=== PATIENT | female | born 1985 | race American Indian/Alaskan Native ===

== ENCOUNTER 2020-06-06 07:41 | Emergency (ER) | payer SELFPAY ==
--- NOTE | 2020-06-06 07:42 | EDM.PDOC ---
ED HPI GENERAL MEDICAL PROBLEM - General Stated Complaint: 8 WEEKS PREG-- EXTREME MORNING SICKNESS Time Seen by Provider: 06/06/20 07:41 Source of Information: Reports: Patient History Limitations: Reports: No Limitations - History of Present Illness INITIAL COMMENTS - FREE TEXT/NARRATIVE: 34-year-old female [place] 8 weeks presents with nausea and vomiting. Symptoms have worsened over the past 2 to 3 weeks and she has not been tolerating any p.o. intake over the past 2 days including water. She denies fever, pelvic pain, vaginal bleeding, leakage of fluid, myalgia, dysuria, urinary frequency. She admits to feeling weak with chills. She has a first OB appointment with Za Adams on Saturday. ROS: A 10-point review of systems, other than pertinent positives and negatives as stated per HPI, is otherwise negative Past medical history: No additional pertinent history Past Surgical history: No additional pertinent history Social history: No additional pertinent history Family history: No additional pertinent history PHYSICAL EXAM General: AOx4, GCS = 15, No distress HEENT: dry mucous membrane Neck: supple, no meningismus, no Kernig or Brudzinski Cardiac: S1S2 RRR Respiratory: CTAB, no crackles or rales, no wheezing Abdomen: Soft, nontender, no rebound or guarding, nondistended, no pulsatile mass. Back: nontender Musculoskeletal: NVI distally, no deformity Neuro: No focal deficits, CN 2 - 12 WNL. 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 DIRECTED Care 06/06/20 08:01 Active Dextrose 5%-0.45% NaCl [Dextrose 5%-1/2 NS] 1,000 ml Med 06/06/20 10:45 Active IV ASDIRECTED Medication Orders Dextrose/Sodium Chloride (Dextrose 5%-1/2 Ns) 1,000 mls @ 150 mls/hr IV ASDIRE CTED NAZANIN Last Infusion: 06/06/20 11:53 Dose: 999 mls/hr Documented by: [id number] Admin: 06/06/20 10:52 Dose: 150 mls/hr Documented by: [id number] Labs: Laboratory Tests 06/06/20 06/06/20 06/06/20 Range/Units 07:45 07:45 07:45 WBC 9.27 (4.0-11.0) K/uL RBC 4.57 (4.30-5.90) M/uL Hgb 13.1 (12.0-16.0) g/dL Hct 39.0 (36.0-46.0) % MCV 85.3 (80.0-98.0) fL MCH 28.7 (27.0-32.0) pg MCHC 33.6 (31.0-37.0) g/dL RDW Std Deviation 39.2 (28.0-62.0) fl RDW Coeff of Charlene 13 (11.0-15.0) % Plt Count 438 H (150-400) K/uL MPV 9.90 (7.40-12.00) fL Neut % (Auto) 79.6 (48.0-80.0) % Lymph % (Auto) 14.9 L (16.0-40.0) % Swisher % (Auto) 5.1 (0.0-15.0) % Eos % (Auto) 0.3 (0.0-7.0) % Baso % (Auto) 0.1 (0.0-1.5) % Neut # (Auto) 7.4 H (1.4-5.7) K/uL Lymph # (Auto) 1.4 (0.6-2.4) K/uL Swisher # (Auto) 0.5 (0.0-0.8) K/uL Eos # (Auto) 0.0 (0.0-0.7) K/uL Baso # (Auto) 0.0 (0.0-0.1) K/uL Nucleated RBC % 0.0 /100WBC Nucleated RBCs # 0 K/uL Lactate (0.20-2.00) mmol/L Sodium 135 L (136-145) mmol/L Potassium 3.7 (3.5-5.1) mmol/L Chloride 101 (98-107) mmol/L Carbon Dioxide 22.8 (21.0-32.0) mmol/L BUN 7 (7.0-18.0) mg/dL Creatinine 0.7 (0.6-1.0) mg/dL Est Cr Clr Drug Dosing 123.61 mL/min Estimated GFR (MDRD) > 60.0 ml/min Glucose 97 (74-106) mg/dL Calcium 8.9 (8.5-10.1) mg/dL Total Bilirubin 0.8 (0.2-1.0) mg/dL AST 19 (15-37) IU/L ALT 78 H (14-63) IU/L Alkaline Phosphatase 81 (46-116) U/L Total Protein 8.0 (6.4-8.2) g/dL Albumin 3.9 (3.4-5.0) g/dL Globulin 4.1 H (2.6-4.0) g/dL Albumin/Globulin Ratio 1.0 (0.9-1.6) HCG, Qual POSITIVE H (NEG) Urine Color Urine Appearance Urine pH (5.0-8.0) Ur Specific [place] (1.001-1.035) Urine Protein (NEGATIVE) mg/dL Urine Glucose (UA) (NEGATIVE) mg/dL Urine Ketones (NEGATIVE) mg/dL Urine Occult Blood (NEGATIVE) Urine Nitrite (NEGATIVE) Urine Bilirubin (NEGATIVE) Urine Urobilinogen (<2.0) EU/dL Ur Leukocyte Esterase (NEGATIVE) Urine RBC (0-2/HPF) Urine WBC (0-5/HPF) Ur Epithelial Cells (NONE-FEW) Urine Bacteria (NEGATIVE) Urine Mucus (NONE-MOD) 06/06/20 06/06/20 Range/Units 08:20 09:01 WBC (4.0-11.0) K/uL RBC (4.30-5.90) M/uL Hgb (12.0-16.0) g/dL Hct (36.0-46.0) % MCV (80.0-98.0) fL MCH (27.0-32.0) pg MCHC (31.0-37.0) g/dL RDW Std Deviation (28.0-62.0) fl RDW Coeff of Charlene (11.0-15.0) % Plt Count (150-400) K/uL MPV (7.40-12.00) fL Neut % (Auto) (48.0-80.0) % Lymph % (Auto) (16.0-40.0) % Swisher % (Auto) (0.0-15.0) % Eos % (Auto) (0.0-7.0) % Baso % (Auto) (0.0-1.5) % Neut # (Auto) (1.4-5.7) K/uL Lymph # (Auto) (0.6-2.4) K/uL Swisher # (Auto) (0.0-0.8) K/uL Eos # (Auto) (0.0-0.7) K/uL Baso # (Auto) (0.0-0.1) K/uL Nucleated RBC % /100WBC Nucleated RBCs # K/uL Lactate 0.6 (0.20-2.00) mmol/L Sodium (136-145) mmol/L Potassium (3.5-5.1) mmol/L Chloride (98-107) mmol/L Carbon Dioxide (21.0-32.0) mmol/L BUN (7.0-18.0) mg/dL Creatinine (0.6-1.0) mg/dL Est Cr Clr Drug Dosing mL/min Estimated GFR (MDRD) ml/min Glucose (74-106) mg/dL Calcium (8.5-10.1) mg/dL Total Bilirubin (0.2-1.0) mg/dL AST (15-37) IU/L ALT (14-63) IU/L Alkaline Phosphatase (46-116) U/L Total Protein (6.4-8.2) g/dL Albumin (3.4-5.0) g/dL Globulin (2.6-4.0) g/dL Albumin/Globulin Ratio (0.9-1.6) HCG, Qual (NEG) Urine Color ORANGE Urine Appearance CLEAR Urine pH 6.0 (5.0-8.0) Ur Specific [place] >= 1.030 (1.001-1.035) Urine Protein 100 H (NEGATIVE) mg/dL Urine Glucose (UA) NEGATIVE (NEGATIVE) mg/dL Urine Ketones >=80 (NEGATIVE) mg/dL Urine Occult Blood NEGATIVE (NEGATIVE) Urine Nitrite NEGATIVE (NEGATIVE) Urine Bilirubin MODERATE H (NEGATIVE) Urine Urobilinogen 1.0 (<2.0) EU/dL Ur Leukocyte Esterase NEGATIVE (NEGATIVE) Urine RBC 0-2 (0-2/HPF) Urine WBC 3-5 (0-5/HPF) Ur Epithelial Cells MODERATE (NONE-FEW) Urine Bacteria 1+ H (NEGATIVE) Urine Mucus HEAVY (NONE-MOD) Meds: Medications Generic Name Dose Route Start Last Admin Trade Name Freq PRN Reason Stop Dose Admin Dextrose/Sodium Chloride 1,000 mls @ 150 mls/hr 06/06/20 10:45 06/06/20 11:53 Dextrose 5%-1/2 Ns IV 999 mls/hr ASDIRECTED NAZANIN Infusion Discontinued Medications Generic Name Dose Route Start Last Admin Trade Name Freq PRN Reason Stop Dose Admin Diphenhydramine HCl 50 mg 06/06/20 10:20 06/06/20 10:28 Benadryl IVPUSH 06/06/20 10:21 50 mg ONETIME ONE Administration Lactated Ringer's 1,000 mls @ 999 mls/hr 06/06/20 08:01 06/06/20 08:13 Ringers, Lactated IV 06/06/20 09:01 999 mls/hr STAT STA Administration Lactated Ringer's 1,000 mls @ 999 mls/hr 06/06/20 09:05 06/06/20 09:33 Ringers, Lactated IV 06/06/20 10:05 999 mls/hr .BOLUS ONE Administration Metoclopramide HCl 10 mg 06/06/20 10:20 06/06/20 10:28 Reglan IVPUSH 06/06/20 10:21 10 mg ONETIME ONE Administration Ondansetron HCl 4 mg 06/06/20 08:01 06/06/20 08:13 Zofran IVPUSH 06/06/20 08:02 4 mg ONETIME ONE Administration - Re-Assessments/Exams Free Text/Narrative Re-Assessment/Exam: 06/06/20 13:00 After 2L LR and 1L D5 1/2 NS in the ER, she improved and is currently stable for discharge. I performed a repeat exam and did not appreciate new abnormal findings. Patient exhibits normal vital signs and has a normal gait on road test. I advised the patient to return to the ER for reevaluation if symptoms worsened, including fever, worsening pain, or any other worrisome symptoms. I instructed the patient to follow up with Za Paiz within 2-3 days. MEDICAL DECISION MAKING: I reviewed the patients past medical records, lab and radiographic findings. I discussed the case with the patient. My differential diagnosis included: Starvation ketosis, dehydration, hyperemesis gravidarum. Patient's urine demonstrated ketones, she was given D5 half-normal saline and 2 L of LR in the ER. She felt much improved and wanted to go home. Urine did not demonstrate UTI. Departure - Departure Time of Disposition: 12:41 Disposition: Home, Self-Care 01 Condition: Good Clinical Impression: Hyperemesis gravidarum - Discharge Information *PRESCRIPTION DRUG MONITORING PROGRAM REVIEWED*: Not Applicable *COPY OF PRESCRIPTION DRUG MONITORING REPORT IN PATIENT KASSI: Not Applicable Prescriptions: Ondansetron [Zofran ODT] 4 mg PO Q6H PRN #12 tab.dis PRN Reason: Vomiting Instructions: Hyperemesis Gravidarum Referrals: PCP,None [Primary Care Provider] - Forms: ED Department Discharge Additional Instructions: The need for follow-up, as well as the timing and circumstances, are variable depending upon the specifics of your emergency department visit. If you don't have a primary care physician on staff, we will provide you with a referral. We always advise you to contact your personal physician following an emergency department visit to inform them of the circumstance of the visit and for follow-up with them and/or the need for any referrals to a consulting specialist. The emergency department will also refer you to a specialist when appropriate. This referral assures that you have the opportunity for follow-up care with a specialist. All of these measure are taken in an effort to provide you with optimal care, which includes your follow-up. Under all circumstances we always encourage you to contact your private physician who remains a resource for coordinating your care. When calling for follow-up care, please make the office aware that this follow-up is from your recent emergency room visit. If for any reason you are refused follow-up, please contact the [facility] Emergency Department at and asked to speak to the emergency department charge nurse. If you do not have a primary care doctor, please follow up with the clinics below within 3-5 days. [facility] [address] [place] [id number] [facility] [address] [place] [id number] Sepsis Event Note (ED) - Focused Exam Vital Signs: Vital Signs Temp Pulse Resp BP Pulse Ox 06/06/20 10:32 59 L 17 126/66 99 06/06/20 09:35 61 140/72 99 06/06/20 07:52 97.3 F 64 17 147/94 H 98 - My Orders Last 24 Hours: My Active Orders 06/06/20 08:01 Cardiac Monitoring [RC] . DIRECTED 06/06/20 10:45 Dextrose 5%-0.45% NaCl [Dextrose 5%-1/2 NS] 1,000 ml IV ASDIRECTED - Assessment/Plan Last 24 Hours: My Active Orders 06/06/20 08:01 Cardiac Monitoring [RC] . DIRECTED 06/06/20 10:45 Dextrose 5%-0.45% NaCl [Dextrose 5%-1/2 NS] 1,000 ml IV ASDIRECTED
[2020-06-06] MEDS ORDERED: Ondansetron 4 MG/2 ML SDV IVPUSH ONE (08:01)
[2020-06-06] MEDS ORDERED: Lactated Ringers 1,000 ML IV STA (08:01)
[2020-06-06 08:25] LABS: BLOOD UREA NITROGEN,BUN 7 mg/dL (7.0-18.0); CARBON DIOXIDE,CO2 22.8 mmol/L (21.0-32.0); CHLORIDE,CL 101 mmol/L (98-107); GLUCOSE RANDOM 97 mg/dL (74-106); POTASSIUM,K 3.7 mmol/L (3.5-5.1); SODIUM,NA 135 mmol/L (136-145)
[2020-06-06] MEDS ORDERED: Lactated Ringers 1,000 ML IV ONE (09:05)
[2020-06-06] MEDS ORDERED: diphenhydrAMINE 50 MG/ML SDV IVPUSH ONE (10:20)
[2020-06-06] MEDS ORDERED: Metoclopramide 10 MG/2 ML SDV IVPUSH ONE (10:20)
[2020-06-06] MEDS ORDERED: Dextrose 5%-0.45% NaCl 1,000 ML IV SCH (10:45)
[2020-06-06 12:48] VITALS: BP 128/69; PULSE 65
== END 2020-06-06 12:48 | disposition home or self-care (01) ==
LOC: MW.ED 07:41
DX: O21.0 Mild hyperemesis gravidarum (principal); Z3A.08 8 weeks gestation of pregnancy
CPT/HCPCS: 36415; 80053; 81001; 83605; 84703; 85025; 96361; 96374; 96375; 99284; J1200; J2405; J2765; J7042; J7120; 99283

== ENCOUNTER 2020-06-11 07:30 | Emergency (ER) | payer SELFPAY ==
[2020-06-11] MEDS ORDERED: Sodium Chloride 0.9% 2.5 ML Syringe FLUSH PRN (07:49)
[2020-06-11] MEDS ORDERED: Sodium Chloride 0.9% 10 ML Syringe FLUSH PRN (07:49)
[2020-06-11] MEDS ORDERED: Metoclopramide 10 MG/2 ML SDV IVPUSH ONE (07:50)
[2020-06-11] MEDS ORDERED: Lactated Ringers 1,000 ML IV ONE ×2 (07:51→10:05)
--- NOTE | 2020-06-11 07:56 | EDM.PDOC ---
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 She not keeping anything down. She was here in the eighth and she responded well to Reglan was sent home with a prescription for Zofran for about 24 hours she felt better. An ultrasound on the and was told she is Review of systems: As per history of present illness and below otherwise all systems reviewed and negative. Past medical history: As per history of present illness and as reviewed below otherwise noncontributory. Surgical history: As per history of present illness and as reviewed below otherwise noncontributory. Social history: No reported history of drug or alcohol abuse. Family history: As per history of present illness and as reviewed below otherwise noncontributory. Physical exam: Constitutional - well developed, well-nourished and in no acute distress HEENT - normocephalic, no evidence of trauma - external nose and mouth normal - no mass in neck and no JVD - mucosae moist EYES - full EOM, PERRL, no icterus - no evidence of inflammation, injection, or drainage Respiratory - no respiratory distress, equal bilateral expansion, lungs clear to auscultation and no abnormal lung sounds Cardiovascular - Regular Rhythm with S1 and S2 appreciated and no murmur, gallop or rub. GI - abdomen soft without distension or organomegaly - normal bowel sounds - no guard or rebound Musculoskeletal no gross deformity of long bones or joints - no tenderness, swelling or edema Neurologic - Alert and oriented times four - CN II-XII grossly intact - motor sensory and coordination symmetrically normal Psychiatric - appropriate mood and affect with normal thought content Hematologic - No petechiae or purpura - mucosa appropriate color and sclera not pale - normal nail bed color and refill Integument - no rash or evidence of trauma - normal turgor Diagnostics: [] Therapeutics: [] Impression: [] Plan: [] Definitive disposition and diagnosis as appropriate pending reevaluation and review of above. 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 ED EXAM, GENERAL - Physical Exam Exam: See Below Free Text/Narrative:: My physical exam as in the HPI Course - Vital Signs Text/Narrative:: 8:30 AM and is resting comfortably. The plan at this time would be to have her respond to Reglan and hydrate her. If she does better she is willing to try to go home with Reglan prescription instead of Zofran. Was reviewed and nothing is terribly Adaline although CO2 slightly depressed from prior. 1038 the patient is doing well. She is taking p.o. Second liter has not gotten penitentiary and and she is only had a few sips so I will reevaluate before final decision to discharge. 11:15 AM patient is tolerating p.o. fluids. Has second liter of IV fluids. Wanting to try Reglan at home. Discharge planned. Last Recorded V/S: Last Vital Signs Temp 35.9 C L 06/11/20 07:36 Pulse 61 06/11/20 08:45 Resp 17 06/11/20 08:45 BP 110/71 06/11/20 08:45 Pulse Ox 97 06/11/20 08:45 - Orders/Labs/Meds Orders: Active Orders 24 hr Category Date Time Status Communication Order [RC] STAT Care 06/11/20 10:06 Active Sodium Chloride 0.9% [Saline Flush] Med 06/11/20 07:49 Active 10 ml FLUSH ASDIRECTED PRN Sodium Chloride 0.9% [Saline Flush] Med 06/11/20 07:49 Active 2.5 ml FLUSH ASDIRECTED PRN Saline Lock Insert [OM.PC] Stat Oth 06/11/20 07:50 Ordered Medication Orders Sodium Chloride (Sodium Chloride 0.9% 10 Ml Syringe) 10 ml FLUSH ASDIRECTED PRN PRN Reason: Keep Vein Open Last Admin: 06/11/20 08:14 Dose: 10 ml Documented by: AMANDA Sodium Chloride (Sodium Chloride 0.9% 2.5 Ml Syringe) 2.5 ml FLUSH ASDIRECTED PRN PRN Reason: Keep Vein Open Last Admin: 06/11/20 08:14 Dose: 2.5 ml Documented by: AMANDA Labs: Laboratory Tests 06/11/20 06/11/20 Range/Units 07:45 07:45 WBC 8.35 (4.0-11.0) K/uL RBC 4.58 (4.30-5.90) M/uL Hgb 13.3 (12.0-16.0) g/dL Hct 38.9 (36.0-46.0) % MCV 84.9 (80.0-98.0) fL MCH 29.0 (27.0-32.0) pg MCHC 34.2 (31.0-37.0) g/dL RDW Std Deviation 38.7 (28.0-62.0) fl RDW Coeff of Charlene 13 (11.0-15.0) % Plt Count 402 H (150-400) K/uL MPV 10.00 (7.40-12.00) fL Neut % (Auto) 81.3 H (48.0-80.0) % Lymph % (Auto) 14.5 L (16.0-40.0) % Bay % (Auto) 3.6 (0.0-15.0) % Eos % (Auto) 0.4 (0.0-7.0) % Baso % (Auto) 0.2 (0.0-1.5) % Neut # (Auto) 6.8 H (1.4-5.7) K/uL Lymph # (Auto) 1.2 (0.6-2.4) K/uL Bay # (Auto) 0.3 (0.0-0.8) K/uL Eos # (Auto) 0.0 (0.0-0.7) K/uL Baso # (Auto) 0.0 (0.0-0.1) K/uL Nucleated RBC % 0.0 /100WBC Nucleated RBCs # 0 K/uL Sodium 135 L (136-145) mmol/L Potassium 3.5 (3.5-5.1) mmol/L Chloride 100 (98-107) mmol/L Carbon Dioxide 19.3 L (21.0-32.0) mmol/L BUN 7 (7.0-18.0) mg/dL Creatinine 0.7 (0.6-1.0) mg/dL Est Cr Clr Drug Dosing TNP Estimated GFR (MDRD) > 60.0 ml/min Glucose 95 (74-106) mg/dL Calcium 8.9 (8.5-10.1) mg/dL Total Bilirubin 0.7 (0.2-1.0) mg/dL AST 29 (15-37) IU/L ALT 64 H (14-63) IU/L Alkaline Phosphatase 84 (46-116) U/L Total Protein 8.1 (6.4-8.2) g/dL Albumin 3.9 (3.4-5.0) g/dL Globulin 4.2 H (2.6-4.0) g/dL Albumin/Globulin Ratio 0.9 (0.9-1.6) Meds: Medications Generic Name Dose Route Start Last Admin Trade Name Freq PRN Reason Stop Dose Admin Sodium Chloride 10 ml 06/11/20 07:49 06/11/20 08:14 Sodium Chloride 0.9% 10 Ml Syringe FLUSH 10 ml ASDIRECTED PRN Administration Keep Vein Open Sodium Chloride 2.5 ml 06/11/20 07:49 06/11/20 08:14 Sodium Chloride 0.9% 2.5 Ml Syringe FLUSH 2.5 ml ASDIRECTED PRN Administration Keep Vein Open Discontinued Medications Generic Name Dose Route Start Last Admin Trade Name Freq PRN Reason Stop Dose Admin Lactated Ringer's 1,000 mls @ 1,000 mls/hr 06/11/20 07:51 06/11/20 08:11 Ringers, Lactated IV 06/11/20 08:50 1,000 mls/hr .BOLUS ONE Administration Lactated Ringer's 1,000 mls @ 1,000 mls/hr 06/11/20 10:05 06/11/20 10:13 Ringers, Lactated IV 06/11/20 11:04 1,000 mls/hr .BOLUS ONE Administration Metoclopramide HCl 10 mg 06/11/20 07:50 06/11/20 08:11 Metoclopramide 10 Mg/2 Ml Sdv IVPUSH 06/11/20 07:51 10 mg ONETIME ONE Administration Departure - Departure Time of Disposition: 11:15 Disposition: Home, Self-Care 01 Condition: Good Clinical Impression: Hyperemesis gravidarum - Discharge Information Prescriptions: Metoclopramide HCl [Reglan] 10 mg PO Q6H PRN #14 tablet PRN Reason: Nausea/Vomiting Instructions: Hyperemesis Gravidarum Referrals: Za Renee, JANNETH, ANIMAL KILLER [Primary Care Provider] - Forms: ED Department Discharge Additional Instructions: We will try Reglan this time. Drink plenty of fluids that contain electrolytes and try to get some protein. Follow-up with your doctor. Return if worse. [facility] [address] [place], [place] [id number] [facility] [address] [place] [address] The following information is given to patients seen in the emergency department who are being discharged to home. This information is to outline your options for follow-up care. We provide all patients seen in our emergency department with a follow-up referral. The need for follow-up, as well as the timing and circumstances, are variable depending upon the specifics of your emergency department visit. If you don't have a primary care physician on staff, we will provide you with a referral. We always advise you to contact your personal physician following an emergency department visit to inform them of the circumstance of the visit and for follow-up with them and/or the need for any referrals to a consulting specialist. The emergency department will also refer you to a specialist when appropriate. This referral assures that you have the opportunity for follow-up care with a specialist. All of these measure are taken in an effort to provide you with opt imal care, which includes your follow-up. Under all circumstances we always encourage you to contact your private physician who remains a resource for coordinating your care. When calling for follow-up care, please make the office aware that this follow-up is from your recent emergency room visit. If for any reason you are refused follow-up, please contact the Emergency Department at and asked to speak to the emergency department charge nurse. Sepsis Event Note (ED) - Evaluation Sepsis Screening Result: No Definite Risk - Focused Exam Vital Signs: Vital Signs Temp Pulse Resp BP Pulse Ox 06/11/20 08:45 61 17 110/71 97 06/11/20 07:36 35.9 C L 73 18 139/84 96 - My Orders Last 24 Hours: My Active Orders 06/11/20 07:49 Sodium Chloride 0.9% [Saline Flush] 10 ml FLUSH ASDIRECTED PRN Sodium Chloride 0.9% [Saline Flush] 2.5 ml FLUSH ASDIRECTED PRN 06/11/20 07:50 Saline Lock Insert [OM.PC] Stat 06/11/20 10:06 Communication Order [RC] STAT - Assessment/Plan Last 24 Hours: My Active Orders 06/11/20 07:49 Sodium Chloride 0.9% [Saline Flush] 10 ml FLUSH ASDIRECTED PRN Sodium Chloride 0.9% [Saline Flush] 2.5 ml FLUSH ASDIRECTED PRN 06/11/20 07:50 Saline Lock Insert [OM.PC] Stat 06/11/20 10:06 Communication Order [RC] STAT
[2020-06-11 08:08] LABS: BLOOD UREA NITROGEN,BUN 7 mg/dL (7.0-18.0); CARBON DIOXIDE,CO2 19.3 mmol/L (21.0-32.0); CHLORIDE,CL 100 mmol/L (98-107); GLUCOSE RANDOM 95 mg/dL (74-106); POTASSIUM,K 3.5 mmol/L (3.5-5.1); SODIUM,NA 135 mmol/L (136-145)
[2020-06-11 13:36] VITALS: BP 128/71; PULSE 60
== END 2020-06-11 11:35 | disposition home or self-care (01) ==
LOC: MW.ED 07:30
DX: O21.0 Mild hyperemesis gravidarum (principal)
CPT/HCPCS: 36415; 80053; 85025; 96374; 99284; J2765; J7120; 99283

== ENCOUNTER 2020-06-15 07:57 | Emergency (ER) | payer SELFPAY ==
[2020-06-15] MEDS ORDERED: Sodium Chloride 0.9% 1,000 ML IV ONE (08:21)
[2020-06-15] MEDS ORDERED: Metoclopramide 10 MG/2 ML SDV IVPUSH ONE (08:22)
[2020-06-15] MEDS ORDERED: diphenhydrAMINE 50 MG/ML SDV IVPUSH ONE (08:23)
--- NOTE | 2020-06-15 08:27 | EDM.PDOC ---
ED HPI GENERAL MEDICAL PROBLEM - General Chief Complaint: Gastrointestinal Problem Stated Complaint: VOMITING Time Seen by Provider: 06/15/20 08:23 Source of Information: Reports: Patient History Limitations: Reports: No Limitations - History of Present Illness INITIAL COMMENTS - FREE TEXT/NARRATIVE: Patient is a 35-year-old female who is 10 weeks G3, P2 presents today for vomiting. Patient dates in the past week she seen 3 providers for the vomiting. She initially was started on vitamin B6 and Unasyn which she says she cannot keep down acute vomiting. Patient was then given Reglan in the ED which seemed to help her vomiting but she went home with a prescription has not been to keep the medicine down as well. Patient also tried Zofran p.o. has not helped. Patient denies any abdominal pain vaginal bleeding or discharge. Patient dates that whenever she eats or drinks something she just vomits. Patient states she has felt tired weak but no she is not eating well concerned about not taking any food or liquids then. Patient has no other complaints. 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: Psychiatric History: Reports: Anxiety - Infectious Disease History Infectious Disease History: Reports: None - Past Surgical History GI Surgical History: Reports: Cholecystectomy Social & Family History - Family History Family Medical History: No Pertinent Family History - Tobacco Use Tobacco Use Status *Q: Never Tobacco User - Caffeine Use Caffeine Use: Reports: None - Recreational Drug Use Recreational Drug Use: No ED ROS GENERAL - Review of Systems Review Of Systems: See Below Constitutional: Reports: No Symptoms HEENT: Reports: No Symptoms Respiratory: Reports: No Symptoms Cardiovascular: Reports: No Symptoms Endocrine: Reports: No Symptoms GI/Abdominal: Reports: Vomiting : Reports: No Symptoms Musculoskeletal: Reports: No Symptoms Skin: Reports: No Symptoms Neurological: Reports: No Symptoms Psychiatric: Reports: No Symptoms Hematologic/Lymphatic: Reports: No Symptoms Immunologic: Reports: No Symptoms ED EXAM - Physical Exam Exam: See Below Exam Limited By: No Limitations General Appearance: Alert, WD/WN, No Apparent Distress Eye Exam: Bilateral Eye: EOMI, PERRL Respiratory/Chest: No Respiratory Distress, Lungs Clear Cardiovascular: Normal Peripheral Pulses, Regular Rate, Rhythm GI/Abdominal Exam: Normal Bowel Sounds, Soft, Non-Tender Extremities: Normal Inspection Neurological: Alert, Oriented, Normal Cognition, Normal Gait Course - Vital Signs Last Recorded V/S: Last Vital Signs Temp 96.7 F L 06/15/20 08:16 Pulse 64 06/15/20 08:16 Resp 16 06/15/20 08:16 BP 129/77 06/15/20 08:16 Pulse Ox 98 06/15/20 08:16 - Orders/Labs/Meds Orders: Active Orders 24 hr Category Date Time Status Dextrose 5%-0.9% NaCl [Dextrose 5%-Normal Saline] 1,000 Med 06/15/20 09:45 Active ml IV ASDIRECTED Medication Orders Dextrose/Sodium Chloride (Dextrose 5%-Normal Saline) 1,000 mls @ 999 mls/hr IV ASDIRECTED NAZANIN Last Admin: 06/15/20 09:44 Dose: 999 mls/hr Documented by: TAMMI Labs: Laboratory Tests 06/15/20 06/15/20 06/15/20 Range/Units 08:35 08:53 08:53 WBC 7.97 (4.0-11.0) K/uL RBC 4.78 (4.30-5.90) M/uL Hgb 14.0 (12.0-16.0) g/dL Hct 40.4 (36.0-46.0) % MCV 84.5 (80.0-98.0) fL MCH 29.3 (27.0-32.0) pg MCHC 34.7 (31.0-37.0) g/dL RDW Std Deviation 38.5 (28.0-62.0) fl RDW Coeff of Charlene 13 (11.0-15.0) % Plt Count 371 (150-400) K/uL MPV 10.40 (7.40-12.00) fL Neut % (Auto) 76.6 (48.0-80.0) % Lymph % (Auto) 17.1 (16.0-40.0) % Owen % (Auto) 5.9 (0.0-15.0) % Eos % (Auto) 0.3 (0.0-7.0) % Baso % (Auto) 0.1 (0.0-1.5) % Neut # (Auto) 6.1 H (1.4-5.7) K/uL Lymph # (Auto) 1.4 (0.6-2.4) K/uL Owen # (Auto) 0.5 (0.0-0.8) K/uL Eos # (Auto) 0.0 (0.0-0.7) K/uL Baso # (Auto) 0.0 (0.0-0.1) K/uL Nucleated RBC % 0.0 /100WBC Nucleated RBCs # 0 K/uL Sodium 136 (136-145) mmol/L Potassium 3.4 L (3.5-5.1) mmol/L Chloride 101 (98-107) mmol/L Carbon Dioxide 17.4 L (21.0-32.0) mmol/L BUN 8 (7.0-18.0) mg/dL Creatinine 0.7 (0.6-1.0) mg/dL Est Cr Clr Drug Dosing 106.01 mL/min Estimated GFR (MDRD) > 60.0 ml/min Glucose 84 (74-106) mg/dL Calcium 9.0 (8.5-10.1) mg/dL Phosphorus 3.6 (2.6-4.7) mg/dL Magnesium 1.9 (1.8-2.4) mg/dL Total Bilirubin 0.7 (0.2-1.0) mg/dL AST 40 H (15-37) IU/L ALT 109 H (14-63) IU/L Alkaline Phosphatase 96 (46-116) U/L Total Protein 8.1 (6.4-8.2) g/dL Albumin 3.8 (3.4-5.0) g/dL Globulin 4.3 H (2.6-4.0) g/dL Albumin/Globulin Ratio 0.9 (0.9-1.6) Lipase 93 (73-393) U/L HCG, Quant 47912.0 mIU/mL Urine Color YELLOW Urine Appearance SLT CLOUDY Urine pH 6.0 (5.0-8.0) Ur Specific [place] >= 1.030 (1.001-1.035) Urine Protein 30 H (NEGATIVE) mg/dL Urine Glucose (UA) NEGATIVE (NEGATIVE) mg/dL Urine Ketones >=80 (NEGATIVE) mg/dL Urine Occult Blood TRACE-INTACT H (NEGATIVE) Urine Nitrite NEGATIVE (NEGATIVE) Urine Bilirubin SMALL H (NEGATIVE) Urine Ictotest NEGATIVE Urine Urobilinogen 0.2 (<2.0) EU/dL Ur Leukocyte Esterase TRACE H (NEGATIVE) Urine RBC 0-2 (0-2/HPF) Urine WBC 0-3 (0-5/HPF) Ur Epithelial Cells MODERATE (NONE-FEW) Urine Bacteria 2+ H (NEGATIVE) Blood Type 06/15/20 Range/Units 08:53 WBC (4.0-11.0) K/uL RBC (4.30-5.90) M/uL Hgb (12.0-16.0) g/dL Hct (36.0-46.0) % MCV (80.0-98.0) fL MCH (27.0-32.0) pg MCHC (31.0-37.0) g/dL RDW Std Deviation (28.0-62.0) fl RDW Coeff of Charlene (11.0-15.0) % Plt Count (150-400) K/uL MPV (7.40-12.00) fL Neut % (Auto) (48.0-80.0) % Lymph % (Auto) (16.0-40.0) % Owen % (Auto) (0.0-15.0) % Eos % (Auto) (0.0-7.0) % Baso % (Auto) (0.0-1.5) % Neut # (Auto) (1.4-5.7) K/uL Lymph # (Auto) (0.6-2.4) K/uL Owen # (Auto) (0.0-0.8) K/uL Eos # (Auto) (0.0-0.7) K/uL Baso # (Auto) (0.0-0.1) K/uL Nucleated RBC % /100WBC Nucleated RBCs # K/uL Sodium (136-145) mmol/L Potassium (3.5-5.1) mmol/L Chloride (98-107) mmol/L Carbon Dioxide (21.0-32.0) mmol/L BUN (7.0-18.0) mg/dL Creatinine (0.6-1.0) mg/dL Est Cr Clr Drug Dosing mL/min Estimated GFR (MDRD) ml/min Glucose (74-106) mg/dL Calcium (8.5-10.1) mg/dL Phosphorus (2.6-4.7) mg/dL Magnesium (1.8-2.4) mg/dL Total Bilirubin (0.2-1.0) mg/dL AST (15-37) IU/L ALT (14-63) IU/L Alkaline Phosphatase (46-116) U/L Total Protein (6.4-8.2) g/dL Albumin (3.4-5.0) g/dL Globulin (2.6-4.0) g/dL Albumin/Globulin Ratio (0.9-1.6) Lipase (73-393) U/L HCG, Quant mIU/mL Urine Color Urine Appearance Urine pH (5.0-8.0) Ur Specific [place] (1.001-1.035) Urine Protein (NEGATIVE) mg/dL Urine Glucose (UA) (NEGATIVE) mg/dL Urine Ketones (NEGATIVE) mg/dL Urine Occult Blood (NEGATIVE) Urine Nitrite (NEGATIVE) Urine Bilirubin (NEGATIVE) Urine Ictotest Urine Urobilinogen (<2.0) EU/dL Ur Leukocyte Esterase (NEGATIVE) Urine RBC (0-2/HPF) Urine WBC (0-5/HPF) Ur Epithelial Cells (NONE-FEW) Urine Bacteria (NEGATIVE) Blood Type A POSITIVE Meds: Medications Generic Name Dose Route Start Last Admin Trade Name Freq PRN Reason Stop Dose Admin Dextrose/Sodium Chloride 1,000 mls @ 999 mls/hr 06/15/20 09:45 06/15/20 09:44 Dextrose 5%-Normal Saline IV 999 mls/hr ASDIRECTED NAZANIN Administration Discontinued Medications Generic Name Dose Route Start Last Admin Trade Name Freq PRN Reason Stop Dose Admin Diphenhydramine HCl 12.5 mg 06/15/20 08:23 06/15/20 08:47 Diphenhydramine 50 Mg/Ml Sdv IVPUSH 06/15/20 08:24 12.5 mg ONETIME ONE Administration Sodium Chloride 1,000 mls @ 999 mls/hr 06/15/20 08:21 06/15/20 08:47 Normal Saline IV 06/15/20 09:21 999 mls/hr .BOLUS ONE Administration Dextrose/Sodium Chloride 500 mls @ 999 mls/hr 06/15/20 09:19 06/15/20 09:41 Dextrose 5%-Normal Saline IV 06/15/20 09:49 Not Given STAT STA Metoclopramide HCl 10 mg 06/15/20 08:22 06/15/20 08:47 Metoclopramide 10 Mg/2 Ml Sdv IVPUSH 06/15/20 08:23 10 mg ONETIME ONE Administration - Re-Assessments/Exams Free Text/Narrative Re-Assessment/Exam: 06/15/20 10:15 Patient is tolerating p.o. and feels better. Patient was informed that the bacteria in her urine and will be sent home on Macrobid. Patient already has antiemetics at home and will continue to take those. Departure - Departure Time of Disposition: 10:16 Disposition: Home, Self-Care 01 Condition: Good Clinical Impression: Hyperemesis gravidarum - Discharge Information *PRESCRIPTION DRUG MONITORING PROGRAM REVIEWED*: Not Applicable *COPY OF PRESCRIPTION DRUG MONITORING REPORT IN PATIENT KASSI: Not Applicable Instructions: Hyperemesis Gravidarum Referrals: Za Renee CNM, OPERATOR VACUUM [Primary Care Provider] - Forms: ED Department Discharge Additional Instructions: The following information is given to patients seen in the emergency department who are being discharged to home. This information is to outline your options for follow-up care. We provide all patients seen in our emergency department with a follow-up referral. The need for follow-up, as well as the timing and circumstances, are variable depending upon the specifics of your emergency department visit. If you don't have a primary care physician on staff, we will provide you with a referral. We always advise you to contact your personal physician following an emergency department visit to inform them of the circumstance of the visit and for follow-up with them and/or the need for any referrals to a consulting specialist. The emergency department will also refer you to a specialist when appropriate. This referral assures that you have the opportunity for follow-up care with a specialist. All of these measure are taken in an effort to provide you with optimal care, which includes your follow-up. Under all circumstances we always encourage you to contact your private alina alvaradoian who remains a resource for coordinating your care. When calling for follow-up care, please make the office aware that this follow-up is from your recent emergency room visit. If for any reason you are refused follow-up, please contact the [facility] Emergency Department at and asked to speak to the emergency department charge nurse. Please follow up with your primary care physician. If you do not have a primary care physician, see below: [facility] [address] [place] [phone] [facility] [address] [place] [phone] Please continue to follow-up with MECHANICAL ADJUSTER doctor if you have any nausea vomiting and cannot tolerate p.o. or vaginal bleeding please return to the ED. Sepsis Event Note (ED) - Evaluation Sepsis Screening Result: No Definite Risk - Focused Exam Vital Signs: Vital Signs Temp Pulse Resp BP Pulse Ox 06/15/20 08:16 96.7 F L 64 16 129/77 98 - My Orders Last 24 Hours: My Active Orders 06/15/20 09:45 Dextrose 5%-0.9% NaCl [Dextrose 5%-Normal Saline] 1,000 ml IV ASDIRECTED - Assessment/Plan Last 24 Hours: My Active Orders 06/15/20 09:45 Dextrose 5%-0.9% NaCl [Dextrose 5%-Normal Saline] 1,000 ml IV ASDIRECTED Plan: Patient is a 35-year-old female who presents today for nausea and vomiting. Patient is 10 weeks has no vaginal discharge or bleeding. Will provide IV fluids antiemetics and will reassess patient.
[2020-06-15] MEDS ORDERED: Dextrose 5%-0.9% NaCl 1,000 ML IV SCH ×2 (09:15→09:45)
[2020-06-15] MEDS ORDERED: Dextrose 5%-0.9% NaCl 500 ML IV STA (09:19)
[2020-06-15 09:58] LABS: BLOOD UREA NITROGEN,BUN 8 mg/dL (7.0-18.0); CARBON DIOXIDE,CO2 17.4 mmol/L (21.0-32.0); CHLORIDE,CL 101 mmol/L (98-107); GLUCOSE RANDOM 84 mg/dL (74-106); LIPASE 93 U/L (73-393); POTASSIUM,K 3.4 mmol/L (3.5-5.1); SODIUM,NA 136 mmol/L (136-145)
[2020-06-15 10:44] VITALS: BP 119/75; PULSE 65
== END 2020-06-15 10:44 | disposition home or self-care (01) ==
LOC: MW.ED 07:57
DX: O21.0 Mild hyperemesis gravidarum (principal); Z3A.10 10 weeks gestation of pregnancy
CPT/HCPCS: 36415; 80053; 81001; 83690; 83735; 84100; 84702; 85025; 86900; 86901; 96374; 96375; 99284; J1200; J2765; J7030; J7042; 99283

== ENCOUNTER 2020-06-23 15:06 | Emergency (ER) | payer MEDICAID ==
[2020-06-23] MEDS ORDERED: Sodium Chloride 0.9% 1,000 ML IV ONE (15:32)
--- NOTE | 2020-06-23 15:37 | EDM.PDOC ---
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 Patient been seen multiple times in ER for similar symptoms. 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 And states that she woke this morning with vomiting and could not control it at home. Patient states she is able to tolerate liquids at times has not had anything solid in the past few days. Patient also noticed that when she went to the bathroom and wiped there was some blood on the tissue. Patient denies any abdominal cramps states she does not need a pad right now. Patient denies seeing any clots or tissue. 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: Psychiatric History: Reports: Anxiety - Infectious Disease History Infectious Disease History: Reports: None - Past Surgical History GI Surgical History: Reports: Cholecystectomy Social & Family History - Family History Family Medical History: No Pertinent Family History - Caffeine Use Caffeine Use: Reports: None ED ROS GENERAL - Review of Systems Review Of Systems: See Below Constitutional: Reports: No Symptoms HEENT: Reports: No Symptoms Respiratory: Reports: No Symptoms Cardiovascular: Reports: No Symptoms Endocrine: Reports: No Symptoms GI/Abdominal: Reports: Nausea, Vomiting : Reports: No Symptoms Musculoskeletal: Reports: No Symptoms Skin: Reports: No Symptoms Neurological: Reports: No Symptoms Psychiatric: Reports: No Symptoms Hematologic/Lymphatic: Reports: No Symptoms Immunologic: Reports: No Symptoms ED EXAM, GI/ABD - Physical Exam Exam: See Below Exam Limited By: No Limitations General Appearance: Alert, WD/WN, No Apparent Distress Respiratory/Chest: No Respiratory Distress Cardiovascular: Normal Peripheral Pulses, Regular Rate, Rhythm GI/Abdominal Exam: Normal Bowel Sounds, Soft, Non-Tender (Female) Exam: Normal External Exam, Normal Speculum Exam. No: Adnexal Tenderness, Cervical Dilatation, Cervix Motion Tenderness Extremities: Normal Inspection, Normal Range of Motion Neurological: Alert, Oriented, Normal Cognition, Normal Gait Departure - Departure Time of Disposition: 18:59 Disposition: Home, Self-Care 01 Condition: Good Clinical Impression: Hemorrhage, , early - Discharge Information *PRESCRIPTION DRUG MONITORING PROGRAM REVIEWED*: Not Applicable *COPY OF PRESCRIPTION DRUG MONITORING REPORT IN PATIENT KASSI: Not Applicable Instructions: Vaginal Bleeding During , First Trimester Referrals: PCP,None [Primary Care Provider] - Forms: ED Department Discharge Additional Instructions: The following information is given to patients seen in the emergency department who are being discharged to home. This information is to outline your options for follow-up care. We provide all patients seen in our emergency department with a follow-up referral. The need for follow-up, as well as the timing and circumstances, are variable depending upon the specifics of your emergency department visit. If you don't have a primary care physician on staff, we will provide you with a referral. We always advise you to contact your personal physician following an emergency department visit to inform them of the circumstance of the visit and for follow-up with them and/or the need for any referrals to a consulting specialist. The emergency department will also refer you to a specialist when appropriate. This referral assures that you have the opportunity for follow-up care with a specialist. All of these measure are taken in an effort to provide you with optimal care, which includes your follow-up. Under all circumstances we always encourage you to contact your private physician who remains a resource for coordinating your care. When calling for follow-up care, please make the office aware that this follow-up is from your recent emergency room visit. If for any reason you are refused follow-up, please contact the [facility] Emergency Department at and asked to speak to the emergency department charge nurse. Please follow up with your primary care physician. If you do not have a primary care physician, see below: [facility] [address] [place] [id number] [facility] [address] [place] [phone] Please call your CREDIT REVIEW ANALYST physician tomorrow for follow-up. Continue to take your antinausea medication as prescribed. If you have any other concerning signs or symptoms please return to the ED immediately. Sepsis Event Note (ED) - Evaluation Sepsis Screening Result: No Definite Risk - Assessment/Plan Plan: Is a 35-year-old female who presents today for nausea vomiting. Patient also 11 weeks . Patient reports some blood in her urine. Will obtain labs to pelvic exam and possible ultrasound. <Alfonso Romero E - Last Filed: 06/23/20 19:17> ED HPI GENERAL MEDICAL PROBLEM - History of Present Illness INITIAL COMMENTS - FREE TEXT/NARRATIVE: Patient's ultrasound shows a single viable intrauterine . No abnormalities seen. No evidence for placenta previa or abruption. Gestational age calculated at 12 weeks 0 days. The ovaries were not identified on this exam. I have talked with the patient about today's findings, in addition to providing specific details for plan of care. Reassessment at the time of disposition demonstrates that the patient is in no acute distress. The patient is stable for discharge, counseling was provided and we discussed in great detail signs and symptoms that would prompt them to return to the Emergency Department. Medication, follow up and supportive care measures were reviewed and discussed. Voices understanding and is agreeable to plan of care. Denies any further questions or concerns at this time. Course - Vital Signs Last Recorded V/S: Last Vital Signs Temp 96.8 F L 06/23/20 15:15 Pulse 88 06/23/20 18:35 Resp 17 06/23/20 18:35 BP 121/86 06/23/20 18:35 Pulse Ox 99 06/23/20 18:35 - Orders/Labs/Meds Labs: Laboratory Tests 06/23/20 06/23/20 06/23/20 Range/Units 15:34 15:38 15:38 WBC 11.70 H (4.0-11.0) K/uL RBC 5.06 (4.30-5.90) M/uL Hgb 14.9 (12.0-16.0) g/dL Hct 41.9 (36.0-46.0) % MCV 82.8 (80.0-98.0) fL MCH 29.4 (27.0-32.0) pg MCHC 35.6 (31.0-37.0) g/dL RDW Std Deviation 38.7 (28.0-62.0) fl RDW Coeff of Charlene 13 (11.0-15.0) % Plt Count 352 (150-400) K/uL MPV 11.10 (7.40-12.00) fL Neut % (Auto) 80.5 H (48.0-80.0) % Lymph % (Auto) 11.9 L (16.0-40.0) % [place] % (Auto) 7.2 (0.0-15.0) % Eos % (Auto) 0.3 (0.0-7.0) % Baso % (Auto) 0.1 (0.0-1.5) % Neut # (Auto) 9.4 H (1.4-5.7) K/uL Lymph # (Auto) 1.4 (0.6-2.4) K/uL [place] # (Auto) 0.8 (0.0-0.8) K/uL Eos # (Auto) 0.0 (0.0-0.7) K/uL Baso # (Auto) 0.0 (0.0-0.1) K/uL Nucleated RBC % 0.0 /100WBC Nucleated RBCs # 0 K/uL Sodium 133 L (136-145) mmol/L Potassium 3.5 (3.5-5.1) mmol/L Chloride 99 (98-107) mmol/L Carbon Dioxide 12.1 L (21.0-32.0) mmol/L BUN 9 (7.0-18.0) mg/dL Creatinine 0.8 (0.6-1.0) mg/dL Est Cr Clr Drug Dosing 107.15 mL/min Estimated GFR (MDRD) > 60.0 ml/min Glucose 108 H (74-106) mg/dL Calcium 9.1 (8.5-10.1) mg/dL Phosphorus 3.7 (2.6-4.7) mg/dL Magnesium 1.7 L (1.8-2.4) mg/dL Total Bilirubin 0.9 (0.2-1.0) mg/dL AST 54 H (15-37) IU/L ALT 141 H (14-63) IU/L Alkaline Phosphatase 110 (46-116) U/L Total Protein 7.9 (6.4-8.2) g/dL Albumin 3.5 (3.4-5.0) g/dL Globulin 4.4 H (2.6-4.0) g/dL Albumin/Globulin Ratio 0.8 L (0.9-1.6) Lipase 127 (73-393) U/L Urine Color YELLOW Urine Appearance SLT CLOUDY Urine pH 6.0 (5.0-8.0) Ur Specific [place] >= 1.030 (1.001-1.035) Urine Protein 100 H (NEGATIVE) mg/dL Urine Glucose (UA) NEGATIVE (NEGATIVE) mg/dL Urine Ketones >=80 (NEGATIVE) mg/dL Urine Occult Blood LARGE H (NEGATIVE) Urine Nitrite POSITIVE H (NEGATIVE) Urine Bilirubin MODERATE H (NEGATIVE) Urine Urobilinogen 1.0 (<2.0) EU/dL Ur Leukocyte Esterase TRACE H (NEGATIVE) U Hyaline Cast (Auto) 2-4 (0-2/LPF) Urine RBC 3-6 (0-2/HPF) Urine WBC 1-5 (0-5/HPF) Ur Epithelial Cells MODERATE (NONE-FEW) Amorphous Sediment LIGHT (NEGATIVE) Urine Bacteria 3+ H (NEGATIVE) Coarse Granular Casts 0-1 (NEGATIVE) Urine Mucus LIGHT (NONE-MOD) Meds: Medications Discontinued Medications Generic Name Dose Route Start Last Admin Trade Name Freq PRN Reason Stop Dose Admin Al Hydroxide/Mg Hydroxide 15 0 ml 06/23/20 18:12 06/23/20 18:31 ml/ Lidocaine HCl 5 ml PO 06/23/20 18:13 1 each ONETIME ONE Administration Diphenhydramine HCl 12.5 mg 06/23/20 16:20 06/23/20 16:41 Diphenhydramine 50 Mg/Ml Sdv IVPUSH 06/23/20 16:21 12.5 mg ONETIME ONE Administration Sodium Chloride 1,000 mls @ 999 mls/hr 06/23/20 15:32 06/23/20 15:41 Normal Saline IV 06/23/20 16:32 999 mls/hr .BOLUS ONE Administration Ceftriaxone Sodium/Dextrose Confirm 06/23/20 16:33 06/23/20 16:47 Rocephin In Dextrose,Iso-Osm 1 Gm/50 Ml Administered 06/23/20 16:34 Not Given Dose 50 mls @ as directed .ROUTE .STK-MED ONE Ceftriaxone Sodium/Dextrose 1 50 mls @ 100 mls/hr 06/23/20 16:41 06/23/20 16:46 gm/ Premix IV 06/23/20 17:10 100 mls/hr ONETIME ONE Administration Metoclopramide HCl 10 mg 06/23/20 16:20 06/23/20 16:39 Metoclopramide 10 Mg/2 Ml Sdv IVPUSH 06/23/20 16:21 10 mg ONETIME ONE Administration Departure - Departure Time of Disposition: 19:17 Sepsis Event Note (ED) - Focused Exam Vital Signs: Vital Signs Temp Pulse Resp BP Pulse Ox 06/23/20 18:35 88 17 121/86 99 06/23/20 16:00 99 17 106/56 L 97 06/23/20 15:15 96.8 F L 100 18 155/94 H 97
[2020-06-23 16:08] LABS: BLOOD UREA NITROGEN,BUN 9 mg/dL (7.0-18.0); CARBON DIOXIDE,CO2 12.1 mmol/L (21.0-32.0); CHLORIDE,CL 99 mmol/L (98-107); GLUCOSE RANDOM 108 mg/dL (74-106); LIPASE 127 U/L (73-393); POTASSIUM,K 3.5 mmol/L (3.5-5.1); SODIUM,NA 133 mmol/L (136-145)
[2020-06-23] MEDS ORDERED: cefTRIAXone 1 GM Vial IVPUSH ONE (16:08)
[2020-06-23] MEDS ORDERED: diphenhydrAMINE 50 MG/ML SDV IVPUSH ONE (16:20)
[2020-06-23] MEDS ORDERED: Metoclopramide 10 MG/2 ML SDV IVPUSH ONE (16:20)
[2020-06-23] MEDS ORDERED: cefTRIAXone 1 GM in Premix Bag 1 BAG IV ONE (16:41)
[2020-06-23] MEDS ORDERED: Alum Hydrox/Mag Hydrox/Simeth 15 ML, Lidocaine 2% 5 ML PO ONE ×2 (18:12)
[2020-06-23 18:36] VITALS: BP 121/86; PULSE 88
--- NOTE | 2020-06-23 19:15 | US ---
INDICATION: Vaginal bleeding in early . 11 weeks 3 days gestation by LMP TECHNIQUE: Ultrasound OB pelvis transabdominal and transvaginal. Real-time buckner-scale imaging of the pelvis was performed. COMPARISON: None FINDINGS: Sonographic imaging demonstrates a single living intrauterine gestation. The fetus demonstrates a regular cardiac rate measuring 154 beats per minute. The crown rump length measurement of 5.4 cm corresponds to a gestational age of 12 weeks 0 days with a sonographic due date of January 05, 2021. Cervical length is 4.2 cm. The fetus has a variable position. The placenta is posterior and fundal in location. No evidence for placenta previa or abruption. The cervix is closed. The myometrium appears normal. The ovaries were not seen. There are no suspicious fluid collections noted in the cul-de-sac. IMPRESSION: Single viable intrauterine . No abnormalities seen. No evidence for placenta previa or abruption. Gestational age calculated at 12 weeks 0 days. The ovaries were not identified on this exam. Dictated by Dahlai Petit MD @ Jun 23 2020 7:13PM Signed by Dr. Dahlia Petit @ Jun 23 2020 7:13PM
== END 2020-06-23 19:22 | disposition home or self-care (01) ==
LOC: MW.ED 15:06
DX: O20.9 Hemorrhage in early pregnancy, unspecified (principal); Z3A.11 11 weeks gestation of pregnancy; Z79.899 Other long term (current) drug therapy
CPT/HCPCS: 36415; 76817; 80053; 81001; 83690; 83735; 84100; 85025; 96365; 96375; 99284; A9270; J0696; J1200; J2765; J7030

== ENCOUNTER 2021-01-01 04:37 | Inpatient (IN) | payer OTHER ==
[2021-01-01] MEDS ORDERED: Misoprostol 200 MCG Tab PO PRN (05:01)
[2021-01-01] MEDS ORDERED: Lidocaine 1% 50 ML MDV INJECT PRN (05:01)
[2021-01-01] MEDS ORDERED: Methylergonovine 0.2 MG/1 ML Amp IM PRN (05:01)
[2021-01-01] MEDS ORDERED: Butorphanol 1 MG/ML SDV IVPUSH PRN (05:01)
[2021-01-01] MEDS ORDERED: Sodium Chloride 0.9% 10 ML SDV IV PRN (05:01)
[2021-01-01] MEDS ORDERED: Tranexamic Acid 1,000 MG in Sodium Chloride 0.9% 100 ML IV PRN (05:01)
[2021-01-01] MEDS ORDERED: Carboprost Tromethamine 250 MCG/1 ML Amp IM PRN (05:01)
[2021-01-01] MEDS ORDERED: Sodium Chloride 0.9% 2.5 ML Syringe FLUSH PRN (05:01)
[2021-01-01] MEDS ORDERED: Nalbuphine 10 MG/1 ML Vial IVPUSH PRN (05:01)
[2021-01-01] MEDS ORDERED: Sodium Chloride 0.9% 10 ML Syringe FLUSH PRN (05:01)
[2021-01-01] MEDS ORDERED: Water For Irrigation,Sterile 1,000 ML Container IRR PRN (05:01)
[2021-01-01] MEDS: Lactated Ringers 1,000 ML IV SCH ×3 (05:10→07:55)
[2021-01-01] MEDS ORDERED: Oxytocin/0.9 % Sodium Chloride 30 UNIT/500 ML BAG IV SCH ×2 (05:15→10:15)
--- NOTE | 2021-01-01 06:02 | PCM.LDHP ---
L&D History of Present Illness - General Date of Service: 01/01/21 Admit Problem/Dx: Patient Status Order with Admit Dx/Problem 01/01/21 05:01 Patient Status [ADT] Routine Admission Diagnosis/Problem Admission Diagnosis/Problem 01/01/21 05:58 presenting to L&D in active labor at 38 6/7 weeks (LEBRON: 01/09/21 by LMP and early ultrasound). SVE per nurse report on presentation was 5-6cm/90%/-2. SROM just prior to arrival. Patient reports fairly quick deliveries. Early complicated by hyperemesis gravidarum. Positive marijuana use in early . Last positive UDS was 07/25/20; negative UDS since. Pre- BMI: 42.3. Fundal heights have been greater than dates; likely due to maternal body habitus. Growth ultrasound on 10/28/20 noted EFW was 1774 grams (3 lbs 14 oz; 94th percentile); pelvis proven to 11 lbs 5 oz with third child in 2012. FOB for this is different than last. A+, Rubella immune, GBS negative. Vertex by Randy's; confirmed by handheld ultrasound. Source of Information: Patient History Limitations: Reports: No Limitations - Related Data Allergies/Adverse Reactions: Allergies Allergy/AdvReac Type Severity Reaction Status Date / Time No Known Allergies Allergy Verified 01/01/21 05:55 Home Medications: Home Meds Ondansetron [Zofran ODT] 4 mg PO Q6H PRN #12 tab.dis 06/06/20 [Rx] #103/Iron Fumarate/Fa [ ] 1 tab PO DAILY 06/06/20 [History] Promethazine [Phenergan] 50 mg PO DAILY 06/23/20 [History] Past Medical History - Past Health History Medical/Surgical History: Denies Medical/Surgical History Respiratory History: Reports: Other (See Below) Other Respiratory History: Covid 18 Jan 2020 Gastrointestinal History: Reports: 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: Psychiatric History: Reports: Anxiety - Infectious Disease History Infectious Disease History: Reports: None - Past Surgical History GI Surgical History: Reports: Cholecystectomy Social & Family History - Family History Family Medical History: No Pertinent Family History - Caffeine Use Caffeine Use: Reports: None H&P Review of Systems - Review of Systems: Review Of Systems: See Below General: Reports: No Symptoms HEENT: Reports: No Symptoms Pulmonary: Reports: No Symptoms Cardiovascular: Reports: No Symptoms Gastrointestinal: Reports: No Symptoms Genitourinary: Reports: No Symptoms Musculoskeletal: Reports: No Symptoms Skin: Reports: No Symptoms Psychiatric: Reports: No Symptoms Neurological: Reports: No Symptoms Hematologic/Lymphatic: Reports: No Symptoms Immunologic: Reports: No Symptoms L&D Exam - Exam Exam: See Below - Vital Signs Weight: 270 lb - OB Specific Contraction Intensity: Moderate Movement: Active Heart Tones: Present Heart Rate (FHR) Variability: Moderate (6-25 bpm) Presentation: Vertex - Sampson Score Sampson Score Cervix Position: Midposition Sampson Score Consistency: Soft Sampson Score Effacement: >80% Sampson Score Dilation: > 5 cm Sampson Score 's Station: -2 Sampson Score Total: 10 - Exam General: Alert, Oriented, Cooperative Lungs: Normal Respiratory Effort Cardiovascular: Regular Rate, Regular Rhythm GI/Abdominal Exam: Soft, Non-Tender Rectal Exam: Deferred Genitourinary: Deferred Back Exam: Normal Inspection, Full Range of Motion Extremities: Normal Inspection, Normal Range of Motion, Non-Tender, Normal Capillary Refill Skin: Warm, Dry, Intact Neurological: Strength Equal Bilateral, Normal Speech, Normal Tone, Sensation Intact Psychiatric: Alert, Normal Affect, Normal Mood - Problem List (1) Supervision of normal IUP (intrauterine ) in multigravida SNOMED Code(s): 379600574, 916430169, 030200715 ICD Code: Z34.80 - ENCOUNTER FOR SUPRVSN OF NORMAL , UNSP TRIMESTER Status: Acute Priority: High Current Visit: No Qualifiers: Trimester: third trimester Qualified Code(s): Z34.83 - Encounter for supervision of other normal , third trimester (2) Uterine size date discrepancy, antepartum SNOMED Code(s): 241584895, 982085552 ICD Code: O26.849 - UTERINE SIZE-DATE DISCREPANCY, UNSPECIFIED TRIMESTER Status: Acute Priority: High Current Visit: No Problem List Initiated/Reviewed/Updated: Yes Orders Last 24hrs: Active Orders 24 hr Category Date Time Status Patient Status [ADT] Routine ADT 01/01/21 05:01 Active Heart Tones [RC] CONTINUOUS Care 01/01/21 05:01 Active Non Stress Test [RC] PER UNIT ROUTINE Care 01/01/21 05:01 Active May Shower [RC] ASDIRECTED Care 01/01/21 05:01 Active Notify Provider [RC] PRN Care 01/01/21 05:01 Active Up ad Ginny [RC] ASDIRECTED Care 01/01/21 05:01 Active Vaginal Exam [RC] PRN Care 01/01/21 05:01 Active Vital Signs [RC] PER UNIT ROUTINE Care 01/01/21 05:01 Active Regular Diet [DIET] Diet 01/01/21 Breakfast Active CBC W/O DIFF,HEMOGRAM [HEME] Routine Lab 01/01/21 05:30 Received CORONAVIRUS COVID-19 TAO [MOLEC] Urgent Lab 01/01/21 05:30 Received RPR (SYPHILIS SERO) W/ RFLX [REF] Routine Lab 01/01/21 05:30 Received TYPE AND SCREEN [BBK] Routine Lab 01/01/21 05:01 Ordered Butorphanol [Stadol] Med 01/01/21 05:01 Active 1 mg IVPUSH Q1H PRN Carboprost Tromethamine [Hemabate DS] Med 01/01/21 05:01 Active 250 mcg IM ASDIRECTED PRN Lactated Ringers [Ringers, Lactated] 1,000 ml Med 01/01/21 05:15 Active IV ASDIRECTED Lidocaine 1% [Xylocaine 1%] Med 01/01/21 05:01 Active 50 ml INJECT ONETIME PRN Methylergonovine [Methergine] Med 01/01/21 05:01 Active 0.2 mg IM ASDIRECTED PRN Nalbuphine [Nubain] Med 01/01/21 05:01 Active 10 mg IVPUSH Q1H PRN Oxytocin/0.9 % Sodium Chloride [Oxytocin 30 Unit in NS Med 01/01/21 05:15 Active 0.9% 500 ML Premix] 30 unit in 500 ml IV TITRATE Sodium Chloride 0.9% [Normal Saline] Med 01/01/21 05:01 Active 10 ml IV ASDIRECTED PRN Sodium Chloride 0.9% [Saline Flush] Med 01/01/21 05:01 Active 10 ml FLUSH ASDIRECTED PRN Sodium Chloride 0.9% [Saline Flush] Med 01/01/21 05:01 Active 2.5 ml FLUSH ASDIRECTED PRN Tranexamic Acid [Cyklokapron] 1,000 mg Med 01/01/21 05:01 Active Sodium Chloride 0.9% [Normal Saline] 100 ml IV ONETIME Water For Irrigation,Sterile [Sterile Water for Med 01/01/21 05:01 Active Irrigation] 1,000 ml IRR ASDIRECTED PRN miSOPROStoL [Cytotec] Med 01/01/21 05:01 Active 200 mcg PO ONETIME PRN Scalp Electrode [WOMSER] Per Unit Routine Oth 01/01/21 05:01 Ordered Peripheral IV Insertion Adult [OM.PC] Routine Oth 01/01/21 05:01 Ordered Resuscitation Status Routine Resus Stat 01/01/21 05:01 Ordered Medication Orders Butorphanol Tartrate (Butorphanol 1 Mg/Ml Sdv) 1 mg IVPUSH Q1H PRN PRN Reason: Pain (severe 7-10) Carboprost Tromethamine (Carboprost Tromethamine 250 Mcg/1 Ml Amp) 250 mcg IM ASDIRECTED PRN PRN Reason: Post Hemorrhage Oxytocin/Sodium Chloride (Oxytocin 30 Unit In Ns 0.9% 500 Ml Premix) 30 unit in 500 mls @ 999 mls/hr IV TITRATE [facility] Tranexamic Acid 1,000 mg/ (Sodium Chloride) 110 mls @ 660 mls/hr IV ONETIME PRN PRN Reason: Bleeding Lactated Ringer's (Ringers, Lactated) 1,000 mls @ 150 mls/hr IV ASDIRECTED NAZANIN Last Admin: 01/01/21 05:10 Dose: 999 mls/hr Documented by: RATLRAC Lidocaine HCl (Lidocaine 1% 50 Ml Mdv) 50 ml INJECT ONETIME PRN PRN Reason: Laceration repair Methylergonovine Maleate (Methylergonovine 0.2 Mg/1 Ml Amp) 0.2 mg IM ASDIRECTED PRN PRN Reason: Post Hemorrhage Misoprostol (Misoprostol 200 Mcg Tab) 200 mcg PO ONETIME PRN PRN Reason: Post Hemorrhage Nalbuphine HCl (Nalbuphine 10 Mg/1 Ml Vial) 10 mg IVPUSH Q1H PRN PRN Reason: Pain (severe 7-10) Sodium Chloride (Sodium Chloride 0.9% 10 Ml Syringe) 10 ml FLUSH ASDIRECTED PRN PRN Reason: Keep Vein Open Sodium Chloride (Sodium Chloride 0.9% 2.5 Ml Syringe) 2.5 ml FLUSH ASDIRECTED PRN PRN Reason: Keep Vein Open Sodium Chloride (Sodium Chloride 0.9% 10 Ml Sdv) 10 ml IV ASDIRECTED PRN PRN Reason: IV Use Sterile Water (Water For Irrigation,Sterile 1,000 Ml Container) 1,000 ml IRR ASDIRECTED PRN PRN Reason: delivery Assessment/Plan Comment:: Admit A: presenting to L&D in active labor at 38 6/7 weeks ([place]BRON: 01/09/21 by LMP and early ultrasound). SVE per nurse report on presentation was 5-6cm/90%/-2. SROM just prior to arrival. Patient reports fairly quick deliveries. Early complicated by hyperemesis gravidarum. Positive marijuana use in early . Last positive UDS was 07/25/20; negative UDS since. Pre- BMI: 42.3. Fundal heights have been greater than dates; likely due to maternal body habitus. Growth ultrasound on 10/28/20 noted EFW was 1774 grams (3 lbs 14 oz; 94th percentile); pelvis proven to 11 lbs 5 oz with third child in 2013. FOB for this is different than last. A+, Rubella immune, GBS negative. Vertex by Randy's; confirmed by handheld ultrasound. P: Anticipate ; epidural PRN; Dr. Byrd updated.
[2021-01-01] MEDS ORDERED: Ropivacaine 0.2% PF 2 MG/ML 20 ML SDV ONE (06:44)
[2021-01-01] MEDS ORDERED: Ropivacaine HCl/PF 200 ML ONE (06:45)
--- NOTE | 2021-01-01 07:43 | PCM.PREANE ---
Preanesthetic Assessment - Anesthesia/Transfusion/Family Hx Anesthesia History: Prior Anesthesia Without Reaction Family History of Anesthesia Reaction: No Transfusion History: No Prior Transfusion(s) - Review of Systems General: No Symptoms Pulmonary: No Symptoms Cardiovascular: No Symptoms Gastrointestinal: No Symptoms Neurological: No Symptoms Other: Reports: None - Physical Assessment NPO Status Date: 12/31/20 NPO Status Time: 23:55 Height: 1.78 m Weight: 122.47 kg ASA Class: 2 Mental Status: Alert & Oriented x3 Airway Class: Mallampati = 2 Dentition: Reports: Normal Dentition Thyro-Mental Finger Breadths: 3 Mouth Opening Finger Breadths: 2 ROM/Head Extension: Full Lungs: Clear to Auscultation Cardiovascular: Regular Rate - Lab Values: Laboratory Last Values WBC 7.70 K/uL (4.0-11.0) 01/01/21 05:30 RBC 4.18 M/uL (4.30-5.90) L 01/01/21 05:30 Hgb 12.1 g/dL (12.0-16.0) 01/01/21 05:30 Hct 36.1 % (36.0-46.0) 01/01/21 05:30 MCV 86.4 fL (80.0-98.0) 01/01/21 05:30 MCH 28.9 pg (27.0-32.0) 01/01/21 05:30 MCHC 33.5 g/dL (31.0-37.0) 01/01/21 05:30 RDW Std Deviation 40.6 fl (28.0-62.0) 01/01/21 05:30 RDW Coeff of Charlene 13 % (11.0-15.0) 01/01/21 05:30 Plt Count 369 K/uL (150-400) 01/01/21 05:30 MPV 9.90 fL (7.40-12.00) 01/01/21 05:30 Nucleated RBC % 0.0 /100WBC 01/01/21 05:30 Nucleated RBCs # 0 K/uL 01/01/21 05:30 SARS-CoV-2 RNA (TAO) NEGATIVE (NEGATIVE) 01/01/21 05:30 - Allergies Allergies/Adverse Reactions: Allergies Allergy/AdvReac Type Severity Reaction Status Date / Time No Known Allergies Allergy Verified 01/01/21 05:55 - Blood Blood Available: No Product(s) Available: None - Anesthesia Plan Pre-Op Medication Ordered: None - Acknowledgements Anesthesia Type Planned: Epidural Pt an Appropriate Candidate for the Planned Anesthesia: Yes Alternatives and Risks of Anesthesia Discussed w Pt/Guardian: Yes Pt/Guardian Understands and Agrees with Anesthesia Plan: Yes PreAnesthesia Questionnaire - Past Health History Medical/Surgical History: Denies Medical/Surgical History Respiratory History: Reports: Other (See Below) Other Respiratory History: Covid 18 Jan 2020 Gastrointestinal History: Reports: 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: Neurological History: Reports: Migraines Psychiatric History: Reports: Anxiety - Infectious Disease History Infectious Disease History: Reports: None - Past Surgical History Respiratory Surgical History: Reports: None GI Surgical History: Reports: Cholecystectomy Neurological Surgical History: Reports: None - SUBSTANCE USE Tobacco Use Status *Q: Never Tobacco User Second Hand Smoke Exposure: No Recreational Drug Use History: Yes Recreational Drug Type: Reports: Marijuana/Hashish - HOME MEDS Home Medications: Home Meds #103/Iron Fumarate/Fa [ ] 1 tab PO DAILY 06/06/20 [History] - CURRENT (IN HOUSE) MEDS Current Meds: Current Medications Butorphanol Tartrate (Butorphanol 1 Mg/Ml Sdv) 1 mg IVPUSH Q1H PRN PRN Reason: Pain (severe 7-10) Carboprost Tromethamine (Carboprost Tromethamine 250 Mcg/1 Ml Amp) 250 mcg IM ASDIRECTED PRN PRN Reason: Post Hemorrhage Oxytocin/Sodium Chloride (Oxytocin 30 Unit In Ns 0.9% 500 Ml Premix) 30 unit in 500 mls @ 999 mls/hr IV TITRATE COUNT INCLUDES THE [facility] Tranexamic Acid 1,000 mg/ (Sodium Chloride) 110 mls @ 660 mls/hr IV ONETIME PRN PRN Reason: Bleeding Lactated Ringer's (Ringers, Lactated) 1,000 mls @ 150 mls/hr IV ASDIRECTED COUNT INCLUDES THE [facility] Last Admin: 01/01/21 06:21 Dose: 999 mls/hr Documented by: Lidocaine HCl (Lidocaine 1% 50 Ml Mdv) 50 ml INJECT ONETIME PRN PRN Reason: Laceration repair Methylergonovine Maleate (Methylergonovine 0.2 Mg/1 Ml Amp) 0.2 mg IM ASDIRECTED PRN PRN Reason: Post Hemorrhage Misoprostol (Misoprostol 200 Mcg Tab) 200 mcg PO ONETIME PRN PRN Reason: Post Hemorrhage Nalbuphine HCl (Nalbuphine 10 Mg/1 Ml Vial) 10 mg IVPUSH Q1H PRN PRN Reason: Pain (severe 7-10) Sodium Chloride (Sodium Chloride 0.9% 10 Ml Syringe) 10 ml FLUSH ASDIRECTED PRN PRN Reason: Keep Vein Open Sodium Chloride (Sodium Chloride 0.9% 2.5 Ml Syringe) 2.5 ml FLUSH ASDIRECTED PRN PRN Reason: Keep Vein Open Sodium Chloride (Sodium Chloride 0.9% 10 Ml Sdv) 10 ml IV ASDIRECTED PRN PRN Reason: IV Use Sterile Water (Water For Irrigation,Sterile 1,000 Ml Container) 1,000 ml IRR ASDIRECTED PRN PRN Reason: delivery Discontinued Medications Ropivacaine (Naropin 0.2%) Confirm Administered Dose 200 mls @ as directed .ROUTE .CarePayment-MED ONE Stop: 01/01/21 06:46 Ropivacaine (Ropivacaine 0.2% Pf 2 Mg/Ml 20 Ml Sdv) Confirm Administered Dose 20 ml .ROUTE .STK-MED ONE Stop: 01/01/21 06:45
--- NOTE | 2021-01-01 07:48 | PCM.SN.2 ---
Time Documentation - Pre-Procedure Checklist Attending Provider Aware: Yes Chart Reviewed: Yes Consent Signed: Yes Labs Reviewed: Hematocrit, Hemoglobin, Platelet VS/FHR Reviewed: Yes Patient Identification Confirmation Method: Chart Visual, Verbal Patient Pt an Appropriate Candidate for the Planned Anesthesia: Yes Alternatives and Risks of Anesthesia Discussed w Pt/Guardian: Yes - Procedure Procedure Start Date: 01/01/21 Procedure Start Time: 06:[address]: Reports: Blood Pressure, Heart Rate, SPO2 Functional IV: Yes Bolus Infused (fluid type and amount): LR 1 Liter Safety Measures: Reports: Patient Identified, Procedure Verified, Site Verified, Procedure Time Out Patient Position: Reports: Sitting Prep: Reports: Betadine x3 Regional Placement Level: Reports: L3-4 Needle: Reports: Other (17 GA Tuey) Approach: Reports: Midline Parasthesia: Reports: None Fluid Obtained: Reports: None Barbotage: No Medication(s): 0.2% Ropivicaine PF 10 ml bolus in devided doses Total Volume Injected (ml): 10 Time Medication Injected: 07:11 Patient Position Post Placement: Reports: Supine, Supline/SHANA Post-procedure Pain Level: 3 Level Achieved: t4 VS and FHR Monitored in Unit Post Placement: Yes Procedure End Date: 01/01/21 Procedure End Time: 07:20 Procedure Comment: Pt tollerated placement of epidural well. Sterile technique used throughout. test dose with no S&S of intravascular or spinal placement.
--- NOTE | 2021-01-01 07:49 | PCM.POSTAN ---
POST ANESTHESIA ASSESSMENT - MENTAL STATUS Mental Status: Alert - RESPIRATORY Respiratory Status: Respiratory Rate WNL, Airway Patent, O2 Saturation Stable - CARDIOVASCULAR CV Status: Pulse Rate WNL, Blood Pressure Stable - GASTROINTESTINAL GI Status: No Symptoms - PAIN Pain Score: 3 - POST OP HYDRATION Hydration Status: Adequate & Stable - OBSERVATIONS Free Text/Narrative:: pt checked with ice to have bilateral T4 attenuation of sensation. VSS.
[2021-01-01] MEDS ORDERED: ePHEDrine 50 MG/ML SDV IVPUSH PRN (07:57)
[2021-01-01] MEDS ORDERED: Ropivacaine 0.2% 2MG/ML 200 ML Bag EPIDUR SCH (08:00)
[2021-01-01] MEDS ORDERED: Terbutaline 1 MG/ML SDV SUBCUT PRN (10:09)
--- NOTE | 2021-01-01 11:34 | PCM.DEL ---
L & D Note - General Info Date of Service: 01/01/21 Mother's Due Date: 01/09/21 - Delivery Note Labor: Spontaneous, Augmented by Oxytocin Delivery Outcome: Livebirth Infant Delivery Method: Spontaneous Vaginal Delivery-Single Presentation: Vertex Nuchal Cord: None Anesthesia Type: Epidural Amniotic Fluid Description: Meconium Stained Episiotomy Type: None Laceration: None Cord: 3 Vessels Estimated Blood Loss: 250 Resuscitation Needed: No Score 1 min: 8 Score 5 min: 9 Second Stage Interventions: Reports: Second Nurse Assessed Progress of Descent, Second Nurse Reviewed Contraction Pattern, Second Nurse Reviewed Heart Tones, Pushing Effectively, Pushing, Pulls Own Legs Back Delivery Comments (Free Text/Narrative):: viable male; epidural for pain relief; head delivered with good pushing, shoulders and body followed easily after; meconium-stained fluid; baby immediately to mom's abdomen [id number] for assessment; APGARs 8/9; weight pending; cord doubly clamped after cessation of pulsing, cut by FOB; placenta delivered grossly intact, grey, 3VC; EBL 250 mL; pitocin to IVF; perineum intact; mom and baby left in stable condition with nurse at bedside for assessment - General Info Date of Service: 01/01/21 Admission Dx/Problem (Free Text): Patient Status Order with Admit Dx/Problem 01/01/21 05:01 Patient Status [ADT] Routine Admission Diagnosis/Problem Admission Diagnosis/Problem 01/01/21 05:58 presenting to L&D in active labor at 38 6/7 weeks (LEBRON: 01/09/21 by LMP and early ultrasound). SVE per nurse report on presentation was 5-6cm/90%/-2. SROM just prior to arrival. Patient reports fairly quick deliveries. Early complicated by hyperemesis gravidarum. Positive marijuana use in early . Last positive UDS was 07/25/20; negative UDS since. Pre- BMI: 42.3. Fundal heights have been greater than dates; likely due to maternal body habitus. Growth ultrasound on 10/28/20 noted EFW was 1774 grams (3 lbs 14 oz; 94th percentile); pelvis proven to 11 lbs 5 oz with third child in 2012. FOB for this is different than last. A+, Rubella immune, GBS negative. Vertex by Randy's; confirmed by handheld ultrasound. Functional Status: Reports: Pain Controlled - Review of Systems General: Reports: No Symptoms HEENT: Reports: No Symptoms Pulmonary: Reports: No Symptoms Cardiovascular: Reports: No Symptoms Gastrointestinal: Reports: No Symptoms Genitourinary: Reports: No Symptoms Musculoskeletal: Reports: No Symptoms Skin: Reports: No Symptoms Neurological: Reports: No Symptoms Psychiatric: Reports: No Symptoms - Patient Data Weight - Most Recent: 270 lb I&O - Last 24 Hours: Intake & Output 12/31/20 01/01/21 01/01/21 22:59 06:59 14:59 Intake Total 975 Balance 975 Lab Results Last 24 Hours: Laboratory Results - last 24 hr 01/01/21 01/01/21 01/01/21 Range/Units 05:10 05:30 05:30 WBC 7.70 (4.0-11.0) K/uL RBC 4.18 L (4.30-5.90) M/uL Hgb 12.1 (12.0-16.0) g/dL Hct 36.1 (36.0-46.0) % MCV 86.4 (80.0-98.0) fL MCH 28.9 (27.0-32.0) pg MCHC 33.5 (31.0-37.0) g/dL RDW Std Deviation 40.6 (28.0-62.0) fl RDW Coeff of Charlene 13 (11.0-15.0) % Plt Count 369 (150-400) K/uL MPV 9.90 (7.40-12.00) fL Nucleated RBC % 0.0 /100WBC Nucleated RBCs # 0 K/uL Urine Opiates Screen (NEGATIVE) Ur Oxycodone Screen (NEGATIVE) Urine Methadone Screen (NEGATIVE) Ur Barbiturates Screen (NEGATIVE) Ur Phencyclidine Scrn (NEGATIVE) Ur Amphetamine Screen (NEGATIVE) U Methamphetamines Scrn (NEGATIVE) U Benzodiazepines Scrn (NEGATIVE) U Cocaine Metab Screen (NEGATIVE) U Marijuana (THC) Screen (NEGATIVE) SARS-CoV-2 RNA (TAO) NEGATIVE (NEGATIVE) Blood Type A POSITIVE Antibody Screen NEGATIVE 01/01/21 Range/Units 07:45 WBC (4.0-11.0) K/uL RBC (4.30-5.90) M/uL Hgb (12.0-16.0) g/dL Hct (36.0-46.0) % MCV (80.0-98.0) fL MCH (27.0-32.0) pg MCHC (31.0-37.0) g/dL RDW Std Deviation (28.0-62.0) fl RDW Coeff of Charlene (11.0-15.0) % Plt Count (150-400) K/uL MPV (7.40-12.00) fL Nucleated RBC % /100WBC Nucleated RBCs # K/uL Urine Opiates Screen NEGATIVE (NEGATIVE) Ur Oxycodone Screen NEGATIVE (NEGATIVE) Urine Methadone Screen NEGATIVE (NEGATIVE) Ur Barbiturates Screen NEGATIVE (NEGATIVE) Ur Phencyclidine Scrn NEGATIVE (NEGATIVE) Ur Amphetamine Screen NEGATIVE (NEGATIVE) U Methamphetamines Scrn NEGATIVE (NEGATIVE) U Benzodiazepines Scrn NEGATIVE (NEGATIVE) U Cocaine Metab Screen NEGATIVE (NEGATIVE) U Marijuana (THC) Screen NEGATIVE (NEGATIVE) SARS-CoV-2 RNA (TAO) (NEGATIVE) Blood Type Antibody Screen Med Orders - Current: Current Medications Butorphanol Tartrate (Butorphanol 1 Mg/Ml Sdv) 1 mg IVPUSH Q1H PRN PRN Reason: Pain (severe 7-10) Carboprost Tromethamine (Carboprost Tromethamine 250 Mcg/1 Ml Amp) 250 mcg IM ASDIRECTED PRN PRN Reason: Post Hemorrhage Ephedrine Sulfate (Ephedrine 50 Mg/Ml Sdv) 10 mg IVPUSH Q1M PRN PRN Reason: Hypotension Oxytocin/Sodium Chloride (Oxytocin 30 Unit In Ns 0.9% 500 Ml Premix) 30 unit in 500 mls @ 999 mls/hr IV TITRATE NAZANIN Tranexamic Acid 1,000 mg/ (Sodium Chloride) 110 mls @ 660 mls/hr IV ONETIME PRN PRN Reason: Bleeding Lactated Ringer's (Ringers, Lactated) 1,000 mls @ 150 mls/hr IV ASDIRECTED NAZANIN Last Admin: 01/01/21 07:55 Dose: 150 mls/hr Documented by: Oxytocin/Sodium Chloride (Oxytocin 30 Unit In Ns 0.9% 500 Ml Premix) 30 unit in 500 mls @ 2 mls/hr IV TITRATE NAZANIN; Protocol Last Titration: 01/01/21 10:45 Dose: 4 munits/min, 4 mls/hr Documented by: Lidocaine HCl (Lidocaine 1% 50 Ml Mdv) 50 ml INJECT ONETIME PRN PRN Reason: Laceration repair Methylergonovine Maleate (Methylergonovine 0.2 Mg/1 Ml Amp) 0.2 mg IM ASDIRECTED PRN PRN Reason: Post Hemorrhage Miscellaneous Medication (Phenylephrine Hcl In 0.9% Nacl 1 Mg/10 Ml Syringe) 0.1 mg IVPUSH Q1M PRN PRN Reason: Hypotension Misoprostol (Misoprostol 200 Mcg Tab) 200 mcg PO ONETIME PRN PRN Reason: Post Hemorrhage Nalbuphine HCl (Nalbuphine 10 Mg/1 Ml Vial) 10 mg IVPUSH Q1H PRN PRN Reason: Pain (severe 7-10) Ropivacaine (Ropivacaine 0.2% 2mg/Ml 200 Ml Bag) 400 mg EPIDUR ASDIRECTED NAZANIN Sodium Chloride (Sodium Chloride 0.9% 10 Ml Syringe) 10 ml FLUSH ASDIRECTED PRN PRN Reason: Keep Vein Open Sodium Chloride (Sodium Chloride 0.9% 2.5 Ml Syringe) 2.5 ml FLUSH ASDIRECTED PRN PRN Reason: Keep Vein Open Sodium Chloride (Sodium Chloride 0.9% 10 Ml Sdv) 10 ml IV ASDIRECTED PRN PRN Reason: IV Use Sterile Water (Water For Irrigation,Sterile 1,000 Ml Container) 1,000 ml IRR ASDIRECTED PRN PRN Reason: delivery Terbutaline Sulfate (Terbutaline 1 Mg/Ml Sdv) 0.25 mg SUBCUT ASDIRECTED PRN PRN Reason: Tacysystole Discontinued Medications Ropivacaine (Naropin 0.2%) Confirm Administered Dose 200 mls @ as directed .ROUTE .QuotteMED ONE Stop: 01/01/21 06:46 Ropivacaine (Ropivacaine 0.2% Pf 2 Mg/Ml 20 Ml Sdv) Confirm Administered Dose 20 ml .ROUTE .[place]-MED ONE Stop: 01/01/21 06:45 - Exam General: Alert, Oriented, Cooperative, No Acute Distress Lungs: Normal Respiratory Effort Cardiovascular: Regular Rate, Regular Rhythm GI/Abdominal Exam: Soft, Non-Tender (Female) Exam: Normal External Exam Back Exam: Normal Inspection Extremities: Normal Inspection, No Pedal Edema, Normal Capillary Refill Skin: Warm, Dry, Intact Neurological: No New Focal Deficit, Normal Speech, Sensation Intact Psy/Mental Status: Alert, Normal Affect, Normal Mood - Problem List & Annotations (1) Supervision of normal IUP (intrauterine ) in multigravida SNOMED Code(s): 354672870, 710168429, 249897826 Code(s): Z34.80 - ENCOUNTER FOR SUPRVSN OF NORMAL , UNSP TRIMESTER Status: Acute Priority: High Current Visit: No Qualifiers: Trimester: third trimester Qualified Code(s): Z34.83 - Encounter for supervision of other normal , third trimester (2) Uterine size date discrepancy, antepartum SNOMED Code(s): 097054239, 669974043 Code(s): O26.849 - UTERINE SIZE-DATE DISCREPANCY, UNSPECIFIED TRIMESTER Status: Acute Priority: High Current Visit: No (3) (spontaneous vaginal delivery) SNOMED Code(s): 997454511 Code(s): O80 - ENCOUNTER FOR FULL-TERM UNCOMPLICATED DELIVERY Status: Acute Priority: High Current Visit: Yes - Problem List Review Problem List Initiated/Reviewed/Updated: Yes - My Orders Last 24 Hours: My Active Orders 01/01/21 05:01 May Shower [RC] ASDIRECTED Notify Provider [RC] PRN Up ad Ginny [RC] ASDIRECTED Vital Signs [RC] PER UNIT ROUTINE Butorphanol [Stadol] 1 mg IVPUSH Q1H PRN Carboprost Tromethamine [Hemabate DS] 250 mcg IM ASDIRECTED PRN Lidocaine 1% [Xylocaine 1%] 50 ml INJECT ONETIME PRN Methylergonovine [Methergine] 0.2 mg IM ASDIRECTED PRN Nalbuphine [Nubain] 10 mg IVPUSH Q1H PRN Sodium Chloride 0.9% [Normal Saline] 10 ml IV ASDIRECTED PRN Sodium Chloride 0.9% [Saline Flush] 10 ml FLUSH ASDIRECTED PRN Sodium Chloride 0.9% [Saline Flush] 2.5 ml FLUSH ASDIRECTED PRN Tranexamic Acid [Cyklokapron] 1,000 mg Sodium Chloride 0.9% [Normal Saline] 100 ml IV ONETIME Water For Irrigation,Sterile [Sterile Water for Irrigation] 1,000 ml IRR ASDIRECTED PRN miSOPROStoL [Cytotec] 200 mcg PO ONETIME PRN Scalp Electrode [WOMSER] Per Unit Routine Peripheral IV Insertion Adult [OM.PC] Routine Resuscitation Status Routine 01/01/21 05:15 Lactated Ringers [Ringers, Lactated] 1,000 ml IV ASDIRECTED Oxytocin/0.9 % Sodium Chloride [Oxytocin 30 Unit in NS 0.9% 500 ML Premix] 30 unit in 500 ml IV TITRATE 01/01/21 05:30 RPR (SYPHILIS SERO) W/ RFLX [REF] Routine 01/01/21 Breakfast Regular Diet [DIET] - Plan Plan:: Admit A: presenting to L&D in active labor at 38 6/7 weeks ([place]BRON: 01/09/21 by LMP and early ultrasound). SVE per nurse report on presentation was 5-6cm/90%/-2. SROM just prior to arrival. Patient reports fairly quick deliveries. Early complicated by hyperemesis gravidarum. Positive marijuana use in early . Last positive UDS was 07/25/20; negative UDS since. Pre- BMI: 42.3. Fundal heights have been greater than dates; likely due to maternal body habitus. Growth ultrasound on 10/28/20 noted EFW was 1774 grams (3 lbs 14 oz; 94th percentile); pelvis proven to 11 lbs 5 oz with third child in 2012. FOB for this is different than last. A+, Rubella immune, GBS negative. Vertex by Randy's; confirmed by handheld ultrasound. P: Anticipate ; epidural PRN; Dr. Byrd updated. Delivery A: viable male; epidural for pain relief; head delivered with good pushing, shoulders and body followed easily after; meconium-stained fluid; baby immediately to mom's abdomen [id number] for assessment; APGARs 8/9; weight pending; cord doubly clamped after cessation of pulsing, cut by FOB; placenta delivered grossly intact, grey, 3VC; EBL 250 mL; pitocin to IVF; perineum intact; mom and baby left in stable condition with nurse at bedside for assessment P: Routine plan of care; Dr. Byrd updated.
[2021-01-01] MEDS ORDERED: oxyCODONE 5 MG Tab PO PRN (11:35)
[2021-01-01] MEDS ORDERED: Lanolin 100% Cream 7 GM Tube TOP PRN (11:35)
[2021-01-01] MEDS ORDERED: Acetaminophen 500 MG Tab PO PRN ×2 (11:35)
[2021-01-01] MEDS ORDERED: Witch Hazel Medicated Pads 40/Jar TOP PRN (11:35)
[2021-01-01] MEDS ORDERED: Ibuprofen 400 MG Tab PO PRN (11:35)
[2021-01-01] MEDS ORDERED: Bisacodyl 10 MG Supp RECTAL PRN (11:35)
[2021-01-01] MEDS ORDERED: Benzocaine/Menthol 20%-0.5% Spray 78 GM Cannister TOP PRN (11:35)
[2021-01-01] MEDS ORDERED: Docusate Sodium 100 MG Cap PO PRN (11:35)
[2021-01-01] MEDS: Ibuprofen 800 MG Tab PO PRN (20:20)
[2021-01-02] MEDS: Ibuprofen 800 MG Tab PO PRN (08:28)
--- NOTE | 2021-01-02 08:32 | PCM.PNPP ---
- General Info Date of Service: 01/02/21 Functional Status: Reports: Pain Controlled, Tolerating Diet, Ambulating, Urinating - Review of Systems General: Reports: No Symptoms HEENT: Reports: No Symptoms Pulmonary: Reports: No Symptoms Cardiovascular: Reports: No Symptoms Gastrointestinal: Reports: No Symptoms Genitourinary: Reports: No Symptoms Musculoskeletal: Reports: No Symptoms Skin: Reports: No Symptoms Neurological: Reports: No Symptoms Psychiatric: Reports: No Symptoms - Patient Data Vital Signs - Most Recent: Last Vital Signs Temp 97.1 F 01/02/21 07:50 Pulse 57 L 01/02/21 07:50 Resp 18 01/02/21 07:50 BP 110/69 01/02/21 07:50 Pulse Ox 95 01/02/21 07:50 Weight - Most Recent: 270 lb Lab Results - Last 24 Hours: Laboratory Results - last 24 hr 01/01/21 01/01/21 01/02/21 Range/Units 05:10 07:45 05:59 Hgb 10.3 L (12.0-16.0) g/dL Hct 31.0 L (36.0-46.0) % Urine Opiates Screen NEGATIVE (NEGATIVE) Ur Oxycodone Screen NEGATIVE (NEGATIVE) Urine Methadone Screen NEGATIVE (NEGATIVE) Ur Barbiturates Screen NEGATIVE (NEGATIVE) Ur Phencyclidine Scrn NEGATIVE (NEGATIVE) Ur Amphetamine Screen NEGATIVE (NEGATIVE) U Methamphetamines Scrn NEGATIVE (NEGATIVE) U Benzodiazepines Scrn NEGATIVE (NEGATIVE) U Cocaine Metab Screen NEGATIVE (NEGATIVE) U Marijuana (THC) Screen NEGATIVE (NEGATIVE) Blood Type A POSITIVE Antibody Screen NEGATIVE Med Orders - Current: Current Medications Acetaminophen (Acetaminophen 500 Mg Tab) 500 mg PO Q4H PRN PRN Reason: Pain (mild 1-3) Acetaminophen (Acetaminophen 500 Mg Tab) 1,000 mg PO Q4H PRN PRN Reason: Pain (mild 1-3) Benzocaine/Menthol (Benzocaine/Menthol 20%-0.5% [place] 78 Gm Cannister) 78 gm TOP ASDIRECTED PRN PRN Reason: Perineal Comfort Measure Last Admin: 01/01/21 11:58 Dose: 1 bottle Documented by: Bisacodyl (Bisacodyl 10 Mg Supp) 10 mg RECTAL ONETIME PRN PRN Reason: Constipation Docusate Sodium (Docusate Sodium 100 Mg Cap) 100 mg PO Q12H PRN PRN Reason: Constipation Emollient Ointment (Lanolin 100% Cream 7 Gm Tube) 0 gm TOP ASDIRECTED PRN PRN Reason: Sore Nipples Ibuprofen (Ibuprofen 400 Mg Tab) 400 mg PO Q4H PRN PRN Reason: Pain (mild 1-3) Ibuprofen (Ibuprofen 800 Mg Tab) 800 mg PO Q6H PRN PRN Reason: Cramping Last Admin: 01/02/21 08:28 Dose: 800 mg Documented by: Oxycodone HCl (Oxycodone 5 Mg Tab) 5 mg PO Q2H PRN PRN Reason: Pain (severe 7-10) Witch Alix (Witch Alix Medicated Pads 40/Jar) 1 pad TOP ASDIRECTED PRN PRN Reason: comfort care Last Admin: 01/01/21 11:57 Dose: 1 container Documented by: Discontinued Medications Butorphanol Tartrate (Butorphanol 1 Mg/Ml Sdv) 1 mg IVPUSH Q1H PRN PRN Reason: Pain (severe 7-10) Carboprost Tromethamine (Carboprost Tromethamine 250 Mcg/1 Ml Amp) 250 mcg IM ASDIRECTED PRN PRN Reason: Post Hemorrhage Ephedrine Sulfate (Ephedrine 50 Mg/Ml Sdv) 10 mg IVPUSH Q1M PRN PRN Reason: Hypotension Oxytocin/Sodium Chloride (Oxytocin 30 Unit In Ns 0.9% 500 Ml Premix) 30 unit in 500 mls @ 999 mls/hr IV TITRATE NAZANIN Tranexamic Acid 1,000 mg/ (Sodium Chloride) 110 mls @ 660 mls/hr IV ONETIME PRN PRN Reason: Bleeding Lactated Ringer's (Ringers, Lactated) 1,000 mls @ 150 mls/hr IV ASDIRECTED NAZANIN Last Admin: 01/01/21 07:55 Dose: 150 mls/hr Documented by: Ropivacaine (Naropin 0.2%) Confirm Administered Dose 200 mls @ as directed .ROUTE .STK-MED ONE Stop: 01/01/21 06:46 Oxytocin/Sodium Chloride (Oxytocin 30 Unit In Ns 0.9% 500 Ml Premix) 30 unit in 500 mls @ 2 mls/hr IV TITRATE NAZANIN; Protocol Last Titration: 01/01/21 11:35 Dose: 150 munits/min, 150 mls/hr Documented by: Lidocaine HCl (Lidocaine 1% 50 Ml Mdv) 50 ml INJECT ONETIME PRN PRN Reason: Laceration repair Methylergonovine Maleate (Methylergonovine 0.2 Mg/1 Ml Amp) 0.2 mg IM ASDIRECTED PRN PRN Reason: Post Hemorrhage Miscellaneous Medication (Phenylephrine Hcl In 0.9% Nacl 1 Mg/10 Ml Syringe) 0.1 mg IVPUSH Q1M PRN PRN Reason: Hypotension Misoprostol (Misoprostol 200 Mcg Tab) 200 mcg PO ONETIME PRN PRN Reason: Post Hemorrhage Nalbuphine HCl (Nalbuphine 10 Mg/1 Ml Vial) 10 mg IVPUSH Q1H PRN PRN Reason: Pain (severe 7-10) Ropivacaine (Ropivacaine 0.2% Pf 2 Mg/Ml 20 Ml Sdv) Confirm Administered Dose 20 ml .ROUTE .[place] ONE Stop: 01/01/21 06:45 Last Admin: 01/01/21 20:48 Dose: Not Given Documented by: Ropivacaine (Ropivacaine 0.2% 2mg/Ml 200 Ml Bag) 400 mg EPIDUR ASDIRECTED NAZANIN Sodium Chloride (Sodium Chloride 0.9% 10 Ml Syringe) 10 ml FLUSH ASDIRECTED PRN PRN Reason: Keep Vein Open Sodium Chloride (Sodium Chloride 0.9% 2.5 Ml Syringe) 2.5 ml FLUSH ASDIRECTED PRN PRN Reason: Keep Vein Open Sodium Chloride (Sodium Chloride 0.9% 10 Ml Sdv) 10 ml IV ASDIRECTED PRN PRN Reason: IV Use Sterile Water (Water For Irrigation,Sterile 1,000 Ml Container) 1,000 ml IRR ASDIRECTED PRN PRN Reason: delivery Last Admin: 01/01/21 11:44 Dose: 1,000 ml Documented by: Terbutaline Sulfate (Terbutaline 1 Mg/Ml Sdv) 0.25 mg SUBCUT ASDIRECTED PRN PRN Reason: Tacysystole - Infant Interaction Disposition, : in Room with Family Infant Interaction: Holding Feeding: Bottle Fed Infant Support Person: Significant Other - Recovery Exam Fundal Tone: Firm Fundal Level: At Umbilicus Fundal Placement: Midline Lochia Amount: Small Lochia Color: Rubra/Red Perineum Description: Intact, Minimal Bruising/Swelling Episiotomy/Laceration: None Bladder Status: Voiding Urinary Elimination: Voided - Exam General: Alert, Oriented, Cooperative, No Acute Distress Lungs: Normal Respiratory Effort Cardiovascular: Regular Rate, Regular Rhythm GI/Abdominal Exam: Soft, Non-Tender Extremities: Normal Inspection, Normal Range of Motion, Non-Tender, Normal Capillary Refill Skin: Warm, Dry, Intact Neurological: No New Focal Deficit, Normal Speech, Normal Tone, Strength Equal Bilateral, Sensation Intact Psy/Mental Status: Alert, Normal Affect, Normal Mood - Problem List & Annotations (1) Supervision of normal IUP (intrauterine ) in multigravida SNOMED Code(s): 183227493, 057895875, 652656994 Code(s): Z34.80 - ENCOUNTER FOR SUPRVSN OF NORMAL , UNSP TRIMESTER Status: Acute Priority: High Current Visit: No Qualifiers: Trimester: third trimester Qualified Code(s): Z34.83 - Encounter for s upervision of other normal , third trimester (2) Uterine size date discrepancy, antepartum SNOMED Code(s): 372025866, 349073594 Code(s): O26.849 - UTERINE SIZE-DATE DISCREPANCY, UNSPECIFIED TRIMESTER Status: Acute Priority: High Current Visit: No (3) (spontaneous vaginal delivery) SNOMED Code(s): 626852304 Code(s): O80 - ENCOUNTER FOR FULL-TERM UNCOMPLICATED DELIVERY Status: Acute Priority: High Current Visit: Yes - Problem List Review Problem List Initiated/Reviewed/Updated: Yes - My Orders Last 24 Hours: My Active Orders 01/01/21 11:35 Patient Status [ADT] Routine May Shower [RC] ASDIRECTED Up ad Ginny [RC] ASDIRECTED Vital Signs [RC] PER UNIT ROUTINE Acetaminophen [Tylenol Extra Strength] 1,000 mg PO Q4H PRN Acetaminophen [Tylenol Extra Strength] 500 mg PO Q4H PRN Benzocaine/Menthol [Dermoplast Pain Relief 20%-0.5% [place]] 78 gm TOP ASDIRECTED PRN Docusate Sodium [Colace] 100 mg PO Q12H PRN Ibuprofen [Motrin] 400 mg PO Q4H PRN Ibuprofen [Motrin] 800 mg PO Q6H PRN Lanolin [Lansinoh HPA] See Dose Instructions TOP ASDIRECTED PRN bisacodyL [Dulcolax] 10 mg RECTAL ONETIME PRN oxyCODONE 5 mg PO Q2H PRN witch Alix [Tucks] 1 pad TOP ASDIRECTED PRN Assess Lochia [WOMSER] Per Unit Routine Assess Uterine Involution [WOMSER] Per Unit Routine Peripheral IV Discontinue [OM.PC] Routine Resuscitation Status Routine - Plan Plan:: Admit A: presenting to L&D in active labor at 38 6/7 weeks ([place]BRON: 01/09/21 by LMP and early ultrasound). SVE per nurse report on presentation was 5-6cm/90%/-2. SROM just prior to arrival. Patient reports fairly quick deliveries. Early complicated by hyperemesis gravidarum. Positive marijuana use in early . Last positive UDS was 07/25/20; negative UDS since. Pre- BMI: 42.3. Fundal heights have been greater than dates; likely due to maternal body habitus. Growth ultrasound on 10/28/20 noted EFW was 1774 grams (3 lbs 14 oz; 94th percentile); pelvis proven to 11 lbs 5 oz with third child in 2012. FOB for this is different than last. A+, Rubella immune, GBS negative. Vertex by Randy's; confirmed by handheld ultrasound. P: Anticipate ; epidural PRN; Dr. Byrd updated. Delivery A: viable male; epidural for pain relief; head delivered with good pushing, shoulders and body followed easily after; meconium-stained fluid; baby immediately to mom's abdomen [id number] for assessment; APGARs 8/9; weight pending; cord doubly clamped after cessation of pulsing, cut by FOB; placenta delivered grossly intact, [place], 3VC; EBL 250 mL; pitocin to IVF; perineum intact; mom and baby left in stable condition with nurse at bedside for assessment P: Routine plan of care; Dr. Byrd updated. PP Day 1 A: Doing well; bottle feeding and bonding well with infant; urinating; tolerating diet; no concerns/questions at this time. P: Anticipate discharge today. Dr. Byrd updated.
--- NOTE | 2021-01-02 09:25 | PCM48HPAN ---
Post Anesthesia Note - EVALUATION WITHIN 48HRS OF ANESTHETIC Vital Signs in Normal Range: Yes Patient Participated in Evaluation: Yes Respiratory Function Stable: Yes Airway Patent: Yes Cardiovascular Function Stable: Yes Hydration Status Stable: Yes Pain Control Satisfactory: Yes Nausea and Vomiting Control Satisfactory: Yes Mental Status Recovered: Yes Vital Signs: Last Vital Signs Temp 36.2 C 01/02/21 07:50 Pulse 57 L 01/02/21 07:50 Resp 18 01/02/21 07:50 BP 110/69 01/02/21 07:50 Pulse Ox 95 01/02/21 07:50 - COMMENTS/OBSERVATIONS Free Text/Narrative:: Pt states to being up and walking with no problems.
[2021-01-02 16:21] VITALS: BP 129/76; PULSE 60
== END 2021-01-02 17:40 | disposition home or self-care (01) | DRG 807 ==
LOC: MW.OBCHECK 04:37 → MW.OB 04:39 → MW.OBCHECK 05:01 → MW.OB 05:01 → OBSVTOIN 11:35 → MW.OB 14:30
PROVIDERS: ADMIT Obstetrics & Gynecology; ATTEND Obstetrics & Gynecology
PROC: 10E0XZZ Delivery of Products of Conception, External Approach (ICD-10-PCS; principal; 2021-01-01)
PROC: 3E0R3BZ Introduction of Anesthetic Agent into Spinal Canal, Percutaneous Approach (ICD-10-PCS; 2021-01-01)
PROC: 00HU33Z Insertion of Infusion Device into Spinal Canal, Percutaneous Approach (ICD-10-PCS; 2021-01-01)
DX: O26.843 Uterine size-date discrepancy, third trimester (principal); Z37.0 Single live birth; Z86.16 Personal history of COVID-19; O77.0 Labor and delivery complicated by meconium in amniotic fluid; Z20.822 Contact with and (suspected) exposure to COVID-19; Z90.49 Acquired absence of other specified parts of digestive tract; Z3A.38 38 weeks gestation of pregnancy
CPT/HCPCS: 36415; 51702; 59025; 59409; 80305-QW; 85014; 85018; 85027; 86592; 86850; 86900; 86901; A9270-GY; J2590; J2795; J7120; U0002